=== PATIENT | female | born 1960 | race African-American/Black ===

== ENCOUNTER 2017-12-21 14:38 | Emergency (ER) | payer OTHER ==
[2017-12-21 16:28] LABS: Urine Blood NEGATIVE (NEG); Urine Glucose NEGATIVE (NEG); Urine Protein NEGATIVE (NEG); Urine Specific Gravity 1.025 (1.005-1.030)
[2017-12-21 16:36] LABS: Urine Bacteria <20 /HPF (<20); Urine RBC NONE SEEN /HPF (NONE SEEN)
[2017-12-21 16:37] LABS: Urine Culture Reflex Order NOT NEEDED; Urine Mucus MOD /HPF (NONE SEEN)
--- NOTE | 2017-12-21 17:04 | ER ---
Nurse's Notes [facility] Name: Marleny Fay Age: 57 yrs Sex: Female : 1960 Arrival Date: 12/21/2017 Time: 14:41 Bed 11 Private MD: Rama Grimm H Diagnosis: Influenza due to identified novel influenza A virus;Essential (primary) hypertension Presentation: 12/21 14:47 Presenting complaint: Patient states: cough, congestion, and sore throat that began aa5 yesterday. Transition of care: patient was not received from another setting of care. Onset of symptoms was November 2017. Risk Assessment: Do you want to hurt yourself or someone else? Patient reports no desire to harm self or others. Initial Sepsis Screen: Does the patient meet any 2 criteria? No. Patient's initial sepsis screen is negative. Does the patient have a suspected source of infection? No. Patient's initial sepsis screen is negative. Care prior to arrival: None. 14:47 Method Of Arrival: Ambulatory aa5 14:47 Acuity: NARENDRA 3 aa5 Historical: - Allergies: 14:48 No Known Allergies; aa5 - PMHx: 14:48 Hypertension; aa5 - PSHx: 14:48 None; aa5 - Immunization history:: Pneumococcal vaccine is not up to date, Flu vaccine is not up to date. - Social history:: Smoking status: Patient/guardian denies using tobacco. - Ebola Screening: : No symptoms or risks identified at this time. Screenin:00 Abuse screen: Denies threats or abuse. Denies injuries from another. Nutritional sg screening: No deficits noted. Tuberculosis screening: No symptoms or risk factors identified. Never had TB. Fall Risk None identified. Assessment: 16:00 Reassessment: pt reports body aches. General: Appears in no apparent distress. well sg groomed, well developed, well nourished, Behavior is calm, cooperative, appropriate for age. Neuro: No deficits noted. Cardiovascular: Patient's skin is warm and dry. Respiratory: Respiratory effort is even, unlabored, Respiratory pattern is regular, symmetrical. GI: No signs and/or symptoms were reported involving the gastrointestinal system. : No signs and/or symptoms were reported regarding the genitourinary system. EENT: No signs and/or symptoms were reported regarding the EENT system. Derm: Skin is pink, warm \T\ dry. Musculoskeletal: No signs and/or symptoms reported regarding the musculoskeletal system. Vital Signs: 14:49 BP 172 / 89; Pulse 103; Resp 16 S; Temp 99.0(O); Pulse Ox 98% on R/A; Weight 104.78 kg aa5 (R); Height 5 ft. 9 in. (175.26 cm) (R); Pain 8/10; 14:49 Body Mass Index 34.11 (104.78 kg, 175.26 cm) aa5 ED Course: 14:41 Patient arrived in ED. mr 14:41 Rama Grimm DO is Private Physician. mr 14:48 Triage completed. aa5 14:48 Arm band placed on. aa5 15:28 Jan Dixon, TALI is Primary Nurse. sg 15:37 Jeaneth Gupta FNP-C is PHCP. snw 15:37 Marcelo Aranda MD is Attending Physician. snw 15:40 Pulse ox on. NIBP on. sg 15:40 Initial lab(s) drawn, by me, sent to lab. Flu and/or RSV swab sent to lab. Strep swab sg sent to lab. 16:29 Chest Pa And Lat (2 Views) XRAY In Process Unspecified. EDMS 17:03 Rama Grimm DO is Referral Physician. snw Administered Medications: 17:24 Drug: Tamiflu 75 mg Route: PO; sg 17:24 Drug: [place] 5 mg-325 mg 1 tabs Route: PO; sg 17:24 Drug: Zofran 4 mg Route: PO; sg Outcome: 17:03 Discharge ordered by . snw 17:25 Patient left the ED. sg Signatures: Dispatcher [employer] EDMS Jan Dixon RN RN sg Jeaneth Gupta FNP-C FNP-Melody UptonAranza knowles Cecelia Sood RN RN aa5 Corrections: (The following items were deleted from the chart) 17:25 17:04 Tamiflu 75 mg PO sg sg
--- NOTE | 2017-12-21 17:04 | EDPHYS ---
Physician Documentation [facility] Name: Marleny Fay Age: 57 yrs Sex: Female : 1960 Arrival Date: 12/21/2017 Time: 14:41 Bed 11 Private MD: Rama Grimm H ED Physician Marcelo Aranda HPI: 12/21 17:19 This 57 yrs old Black Female presents to ER via Ambulatory with complaints of Flu snw Symptoms. 17:19 Onset: The symptoms/episode began/occurred suddenly, last night. Associated signs and snw symptoms: Pertinent positives: cough, myalgias, fatigue. Modifying factors: The patient symptoms are alleviated by nothing, the patient symptoms are aggravated by activity. It is unknown whether or not the patient has had similar symptoms in the past. The patient has not recently seen a physician. Grandchildren with influenza last week. Historical: - Allergies: 14:48 No Known Allergies; aa5 - PMHx: 14:48 Hypertension; aa5 - PSHx: 14:48 None; aa5 - Immunization history:: Pneumococcal vaccine is not up to date, Flu vaccine is not up to date. - Social history:: Smoking status: Patient/guardian denies using tobacco. - Ebola Screening: : No symptoms or risks identified at this time. ROS: 17:15 Eyes: Negative for injury, pain, redness, and discharge, ENT: Negative for injury, snw pain, and discharge, Neck: Negative for injury, pain, and swelling, Cardiovascular: Negative for chest pain, palpitations, and edema. 17:15 Abdomen/GI: Negative for abdominal pain, nausea, vomiting, diarrhea, and constipation, Back: Negative for injury, positive for pain Skin: Negative for injury, rash, and discoloration, Neuro: Negative for headache, weakness, numbness, tingling, and seizure. 17:15 Constitutional: Positive for body aches, chills, fatigue, fever, malaise. 17:15 Respiratory: Positive for cough. 17:15 MS/extremity: Positive for "i hurt everywhere". Exam: 17:13 Head/Face: Normocephalic, atraumatic. Eyes: Pupils equal round and reactive to light, snw extra-ocular motions intact. Lids and lashes normal. Conjunctiva and sclera are non-icteric and not injected. Cornea within normal limits. Periorbital areas with no swelling, redness, or edema. ENT: Nares patent. No nasal discharge, no septal abnormalities noted. Tympanic membranes are normal and external auditory canals are clear. Oropharynx with no redness, swelling, or masses, exudates, or evidence of obstruction, uvula midline. Mucous membranes moist. Neck: Trachea midline, no thyromegaly or masses palpated, and no cervical lymphadenopathy. Supple, full range of motion without nuchal rigidity, or vertebral point tenderness. No Meningismus. Chest/axilla: Normal chest wall appearance and motion. Nontender with no deformity. No lesions are appreciated. 17:13 Abdomen/GI: Soft, non-tender, with normal bowel sounds. No distension or tympany. No guarding or rebound. No evidence of tenderness throughout. Back: No spinal tenderness. No costovertebral tenderness. Full range of motion. Skin: Warm, dry with normal turgor. Normal color with no rashes, no lesions, and no evidence of cellulitis. MS/ Extremity: Pulses equal, no cyanosis. Neurovascular intact. Full, normal range of motion. Neuro: Awake and alert, GCS 15, oriented to person, place, time, and situation. Cranial nerves II-XII grossly intact. Motor strength 5/5 in all extremities. Sensory grossly intact. Cerebellar exam normal. Normal gait. 17:13 Constitutional: The patient appears alert, awake, uncomfortable. 17:13 Cardiovascular: Rate: tachycardic, Rhythm: regular. 17:13 Respiratory: the patient does not display signs of respiratory distress, Respirations: normal, Breath sounds: are clear throughout, no bronchial sounds, cough. Vital Signs: 14:49 BP 172 / 89; Pulse 103; Resp 16 S; Temp 99.0(O); Pulse Ox 98% on R/A; Weight 104.78 kg aa5 (R); Height 5 ft. 9 in. (175.26 cm) (R); Pain 8/10; 14:49 Body Mass Index 34.11 (104.78 kg, 175.26 cm) aa5 MDM: 15:44 Patient medically screened. [facility] 17:11 Data reviewed: vital signs, nurses notes. Data interpreted: Pulse oximetry: on room air snw is 98 %. Interpretation: normal. Counseling: I had a detailed discussion with the patient and/or guardian regarding: the historical points, exam findings, and any diagnostic results supporting the discharge/admit diagnosis, the presence of at least one elevated blood pressure reading (>120/80) during this emergency department visit, lab results, radiology results, the need for outpatient follow up, to return to the emergency department if symptoms worsen or persist or if there are any questions or concerns that arise at home. Special discussion: I have referred the patient to see his PCP for further evaluation of high blood pressure. Based on the history and exam findings, there is no indication for further emergent testing or inpatient evaluation. I discussed with the patient/guardian the need to see the primary care provider for further evaluation of the symptoms. 12/21 15:47 Order name: Flu; Complete Time: 17:02 iw 12/21 15:47 Order name: Strep; Complete Time: 17:02 iw 12/21 15:48 Order name: Urine Microscopic Only; Complete Time: 16:43 snw 12/21 16:07 Order name: Chest Pa And Lat (2 Views) XRAY; Complete Time: 17:11 snw 12/21 16:09 Order name: Urine Dipstick--Ancillary (enter results); Complete Time: 16:30 bd 12/21 16:58 Order name: Throat Culture EDMS Administered Medications: 17:24 Drug: Tamiflu 75 mg Route: PO; sg 17:24 Drug: [place] 5 mg-325 mg 1 tabs Route: PO; sg 17:24 Drug: Zofran 4 mg Route: PO; sg Disposition: 17:56 Co-signature as Attending Physician, Marcelo Aranda MD I agree with the assessment and sidney plan of care. Disposition: 12/21/17 17:03 Discharged to Home. Impression: Influenza due to identified novel influenza A virus, Essential (primary) hypertension. - Condition is Stable. - Discharge Instructions: Fever, Adult, Hypertension, Influenza, Adult, Cough, Adult. - Prescriptions for Tamiflu 75 mg Oral Capsule - take 1 capsule by ORAL route every 12 hours for 5 days; 10 capsule. Tylenol- Codeine #3 300-30 mg Oral Tablet - take 1 tablet by ORAL route every 6 hours As needed; 6 tablet. Zofran 4 mg Oral Tablet - take 1 tablet by ORAL route every 12 hours As needed; 6 tablet. - Medication Reconciliation Form, Thank You Letter, Antibiotic Education, Prescription Opioid Use form. - Follow up: Alfa, DO Rama; When: 1 week; Reason: Recheck today's complaints, Continuance of care, Re-evaluation by your physician. Follow up: Emergency Department; When: As needed; Reason: Worsening of condition. Signatures: Dispatcher [employer] EDJan Molina, RN RN Marcleo Pichardo MD MD cha Therrien, Shelly, PROOF OPERATOR-C PROOF OPERATOR-Csnw Cecelia Sood, TALI RN aa5 Corrections: (The following items were deleted from the chart) 16:08 15:48 Urine Dipstick-Ancillary ordered. snw bd 17:25 17:03 12/21/2017 17:03 Discharged to Home. Impression: Influenza due to identified sg novel influenza A virus; Essential (primary) hypertension. Condition is Stable. Forms are Medication Reconciliation Form, Thank You Letter, Antibiotic Education, Prescription Opioid Use. Follow up: Rama Grimm; When: 1 week; Reason: Recheck today's complaints, Continuance of care, Re-evaluation by your physician. Follow up: Emergency Department; When: As needed; Reason: Worsening of condition. snw
--- NOTE | 2017-12-21 17:09 | RAD REPORT ---
EXAM DESCRIPTION: RAD - Chest Pa And Lat (2 Views) - 12/21/2017 4:30 pm CLINICAL HISTORY: Cough and congestion COMPARISON: January 2012 TECHNIQUE: PA and lateral views of the chest were obtained. FINDINGS: The lungs are clear of a focal mass, consolidation or acute failure finding. Interstitial markings are prominent but not clearly different. Heart size is normal and central vasculature is w ithin normal limits. No pleural effusion or pneumothorax seen. No acute bony finding noted. No aor tic abnormality. IMPRESSION: No acute cardiopulmonary process. No significant change from comparison.
[2017-12-21] MEDS ORDERED: HYDROCODONE/APAP 5/325 MG TAB ONE (17:25)
[2017-12-21] MEDS ORDERED: ONDANSETRON 4 MG (ODT) TAB ONE (17:25)
[2017-12-21] MEDS ORDERED: OSELTAMIVIR 75 MG CAP ONE (17:25)
[2017-12-21 18:35] VITALS: BP 172/89; TEMP 99; O2SAT 98
== END 2017-12-21 17:25 | disposition home or self-care (01) ==
LOC: ER 14:38
DX: J11.1 Influenza due to unidentified influenza virus with other respiratory manifestations (principal); I10 Essential (primary) hypertension
CPT/HCPCS: 71046; 81003; 81015; 87070; 87081; 87804; 99284

== ENCOUNTER 2018-05-19 15:31 | Emergency (ER) | payer OTHER ==
[2018-05-19 16:50] LABS: Urine Amorphous Sediment 1+ /HPF (NONE SEEN); Urine Bacteria 20-50 /HPF (<20); Urine Culture Reflex Order REFLEXED; Urine Trichomonas PRESENT (NONE SEEN)
[2018-05-19 17:11] LABS: Urine Blood NEGATIVE (NEG); Urine Glucose NEGATIVE (NEG); Urine Protein NEGATIVE (NEG); Urine Specific Gravity 1.015 (1.005-1.030)
--- NOTE | 2018-05-19 17:55 | ER ---
Nurse's Notes [facility] Name: Marleny Fay Age: 57 yrs Sex: Female : 1960 Arrival Date: 05/19/2018 Time: 15:34 Bed 27 Private MD: Rama Grimm H Diagnosis: Hematuria;Trichomoniasis Presentation: 05/19 15:46 Presenting complaint: Patient states: hematuria started today. Transition of care: sv patient was not received from another setting of care. Onset of symptoms was May 19, 2018. Care prior to arrival: None. 15:46 Method Of Arrival: Ambulatory sv 15:46 Acuity: NARENDRA 3 sv 16:02 Risk Assessment: Do you want to hurt yourself or someone else? Patient reports no mg2 desire to harm self or others. Initial Sepsis Screen: Does the patient meet any 2 criteria? No. Patient's initial sepsis screen is negative. Does the patient have a suspected source of infection? No. Patient's initial sepsis screen is negative. Historical: - Allergies: 15:47 No Known Allergies; sv - Home Meds: 16:02 Diltiazem Oral [Active]; lisinopril Oral [Active]; mg2 - PMHx: 15:47 Hypertension; sv - PSHx: 15:47 None; sv - Immunization history:: Flu vaccine status is unknown. - Social history:: Smoking status: unknown. - Ebola Screening: : No symptoms or risks identified at this time. - Family history:: not pertinent. Screenin:56 Abuse screen: Denies threats or abuse. Denies injuries from another. Nutritional mg2 screening: No deficits noted. Tuberculosis screening: No symptoms or risk factors identified. Fall Risk None identified. Assessment: 15:59 General: Appears in no apparent distress. comfortable, Behavior is calm, cooperative. mg2 Pain: Denies pain. Neuro: Level of Consciousness is awake, alert, obeys commands, Oriented to person, place, time, situation. Cardiovascular: Capillary refill < 3 seconds Patient's skin is warm and dry. Respiratory: Airway is patent Respiratory effort is even, unlabored, Respiratory pattern is regular, symmetrical. GI: No signs and/or symptoms were reported involving the gastrointestinal system. : Urine is jamarcus blood, Reports vaginal bleeding that is with clots, moderate flow, since 3 hours ago. EENT: No signs and/or symptoms were reported regarding the EENT system. Derm: Skin is intact, is healthy with good turgor, Skin is pink, warm \T\ dry. normal. Musculoskeletal: Circulation, motion, and sensation intact. Capillary refill < 3 seconds. 18:11 Reassessment: patient just received im antibiotic. for discharge after the shot time. mg2 Vital Signs: 15:47 BP 180 / 92; Pulse 82; Resp 16; Temp 97.5; Pulse Ox 95% ; Weight 102.06 kg; Height 5 sv ft. 9 in. (175.26 cm); Pain 0/10; 16:49 BP 173 / 98; Pulse 82; Resp 18; Pulse Ox 100% on R/A; Pain 0/10; mg2 18:10 BP 165 / 78; Pulse 80; Resp 18; Pulse Ox 100% on R/A; Pain 0/10; mg2 15:47 Body Mass Index 33.23 (102.06 kg, 175.26 cm) sv ED Course: 15:34 Patient arrived in ED. mr 15:34 Rama Grimm DO is Private Physician. mr 15:47 Triage completed. sv 15:48 Arm band placed on. sv 15:54 Dann Barraza, TALI is Primary Nurse. mg2 15:59 Marcelo Aranda MD is Attending Physician. sidney 15:59 Patient has correct armband on for positive identification. Door closed. mg2 16:03 No provider procedures requiring assistance completed. mg2 17:53 Rama Grimm DO is Referral Physician. sidney 17:53 Fartun Almeida MD is Referral Physician. sidney 18:23 Patient did not have IV access during this emergency room visit. mg2 Administered Medications: 18:11 Drug: Rocephin (cefTRIAXone) 1 grams Route: IM; Site: left gluteus; mg2 18:22 Follow up: Response: No adverse reaction; Medication administered at discharge. mg2 18:11 Drug: Zithromax 1 grams Route: PO; mg2 18:22 Follow up: Response: No adverse reaction; Medication administered at discharge. mg2 18:11 Drug: Doxycycline 200 mg Route: PO; mg2 18:22 Follow up: Response: No adverse reaction; Medication administered at discharge. mg2 Outcome: 17:54 Discharge ordered by . sidney 18:23 Discharged to home ambulatory, with family. mg2 18:23 Condition: stable 18:23 Discharge instructions given to patient, family, Instructed on discharge instructions, follow up and referral plans. medication usage, Demonstrated understanding of instructions, follow-up care, medications, Prescriptions given X 3. 18:24 Patient left the ED. mg2 Addendum: 05/22/2018 08:05 Addendum: Culture Results: Positive urine culture. No further action required. Bacteria s s sensitive to prescribed antibiotic. Signatures: Radha Cortes RN RN Marcelo Cleaning MD MD cha Rivera, Mary mr Emilia Gibbons RN RN Dann Barraza RN RN mg2 Corrections: (The following items were deleted from the chart) 05/19 15:48 15:47 Pulse 82bpm; Resp 16bpm; Temp 97.5F; 102.06 kg; Height 5 ft. 9 in.; BMI: 33.2; sv Pain 0/10; sv
--- NOTE | 2018-05-19 17:55 | EDPHYS ---
Physician Documentation [facility] Name: Marleny Fay Age: 57 yrs Sex: Female : 1960 Arrival Date: 05/19/2018 Time: 15:34 Bed 27 Private MD: Rama Grimm H ED Physician Marcelo Aranda HPI: 05/19 16:45 This 57 yrs old Black Female presents to ER via Ambulatory with complaints of Vaginal sidney Bleeding. 16:45 The patient presents with vaginal bleeding that is. Onset: The symptoms/episode sidney began/occurred 2 day(s) ago. Modifying factors: The symptoms are alleviated by nothing, the symptoms are aggravated by nothing. Associated signs and symptoms: The patient has no apparent associated signs or symptoms. Severity of symptoms: At their worst the symptoms were mild, in the emergency department the symptoms are unchanged. The patient is not sexually active. The patient has experienced similar episodes in the past, a few times. Historical: - Allergies: 15:47 No Known Allergies; sv - Home Meds: 16:02 Diltiazem Oral [Active]; lisinopril Oral [Active]; mg2 - PMHx: 15:47 Hypertension; sv - PSHx: 15:47 None; sv - Immunization history:: Flu vaccine status is unknown. - Social history:: Smoking status: unknown. - Ebola Screening: : No symptoms or risks identified at this time. - Family history:: not pertinent. ROS: 16:45 Constitutional: Negative for fever, chills, and weight loss, Eyes: Negative for injury, sidney pain, redness, and discharge, ENT: Negative for injury, pain, and discharge, Neck: Negative for injury, pain, and swelling, Cardiovascular: Negative for chest pain, palpitations, and edema, Respiratory: Negative for shortness of breath, cough, wheezing, and pleuritic chest pain, Abdomen/GI: Negative for abdominal pain, nausea, vomiting, diarrhea, and constipation, Back: Negative for injury and pain, MS/Extremity: Negative for injury and deformity, Skin: Negative for injury, rash, and discoloration, Neuro: Negative for headache, weakness, numbness, tingling, and seizure, Psych: Negative for depression, anxiety, suicide ideation, homicidal ideation, and hallucinations, Allergy/Immunology: Negative for hives, rash, and allergies, Endocrine: Negative for neck swelling, polydipsia, polyuria, polyphagia, and marked weight changes, Hematologic/Lymphatic: Negative for swollen nodes, abnormal bleeding, and unusual bruising. 16:45 : Positive for vaginal bleeding, vaginal itching. Exam: 16:45 Constitutional: This is a well developed, well nourished patient who is awake, alert, sidney and in no acute distress. Head/Face: Normocephalic, atraumatic. Eyes: Pupils equal round and reactive to light, extra-ocular motions intact. Lids and lashes normal. Conjunctiva and sclera are non-icteric and not injected. Cornea within normal limits. Periorbital areas with no swelling, redness, or edema. ENT: Nares patent. No nasal discharge, no septal abnormalities noted. Tympanic membranes are normal and external auditory canals are clear. Oropharynx with no redness, swelling, or masses, exudates, or evidence of obstruction, uvula midline. Mucous membranes moist. Neck: Trachea midline, no thyromegaly or masses palpated, and no cervical lymphadenopathy. Supple, full range of motion without nuchal rigidity, or vertebral point tenderness. No Meningismus. Chest/axilla: Normal chest wall appearance and motion. Nontender with no deformity. No lesions are appreciated. Cardiovascular: Regular rate and rhythm with a normal S1 and S2. No gallops, murmurs, or rubs. Normal PMI, no JVD. No pulse deficits. Respiratory: Lungs have equal breath sounds bilaterally, clear to auscultation and percussion. No rales, rhonchi or wheezes noted. No increased work of breathing, no retractions or nasal flaring. Abdomen/GI: Soft, non-tender, with normal bowel sounds. No distension or tympany. No guarding or rebound. No evidence of tenderness throughout. Back: No spinal tenderness. No costovertebral tenderness. Full range of motion. Skin: Warm, dry with normal turgor. Normal color with no rashes, no lesions, and no evidence of cellulitis. MS/ Extremity: Pulses equal, no cyanosis. Neurovascular intact. Full, normal range of motion. Neuro: Awake and alert, GCS 15, oriented to person, place, time, and situation. Cranial nerves II-XII grossly intact. Motor strength 5/5 in all extremities. Sensory grossly intact. Cerebellar exam normal. Normal gait. Psych: Awake, alert, with orientation to person, place and time. Behavior, mood, and affect are within normal limits. 17:52 : Pelvic Exam: External exam: erythema is noted, excoriation noted, Speculum exam: no sidney bleeding is noted, discharge, yellow, the nurse was present for the exam, Bladder: is normal, non-distended. Vital Signs: 15:47 BP 180 / 92; Pulse 82; Resp 16; Temp 97.5; Pulse Ox 95% ; Weight 102.06 kg; Height 5 sv ft. 9 in. (175.26 cm); Pain 0/10; 16:49 BP 173 / 98; Pulse 82; Resp 18; Pulse Ox 100% on R/A; Pain 0/10; mg2 18:10 BP 165 / 78; Pulse 80; Resp 18; Pulse Ox 100% on R/A; Pain 0/10; mg2 15:47 Body Mass Index 33.23 (102.06 kg, 175.26 cm) sv MDM: 15:59 Patient medically screened. [facility] 16:47 Data reviewed: vital signs, nurses notes. [facility] 05/19 15:55 Order name: Urine Microscopic Only; Complete Time: 17:08 mg2 05/19 16:52 Order name: Urine Culture [facility] 05/19 16:55 Order name: Urine Dipstick--Ancillary (enter results); Complete Time: 17:51 05/19 16:57 Order name: Urine --Ancillary (enter results); Complete Time: 17:51 bd 05/19 16:48 Order name: Urine Dipstick-Ancillary (obtain specimen); Complete Time: 16:49 [facility] 05/19 16:48 Order name: Pelvic Exam Setup; Complete Time: 16:49 sidney Administered Medications: 18:11 Drug: Rocephin (cefTRIAXone) 1 grams Route: IM; Site: left gluteus; mg2 18:22 Follow up: Response: No adverse reaction; Medication administered at discharge. mg2 18:11 Drug: Zithromax 1 grams Route: PO; mg2 18:22 Follow up: Response: No adverse reaction; Medication administered at discharge. mg2 18:11 Drug: Doxycycline 200 mg Route: PO; mg2 18:22 Follow up: Response: No adverse reaction; Medication administered at discharge. mg2 Disposition: 05/19/18 17:54 Discharged to Home. Impression: Hematuria, Trichomoniasis. - Condition is Stable. - Discharge Instructions: Hematuria, Adult, Trichomoniasis. - Prescriptions for Cipro 250 mg Oral Tablet - take 1 tablet by ORAL route every 12 hours; 14 tablet. Doxycycline Hyclate 100 mg Oral Tablet - take 1 tablet by ORAL route every 12 hours; 20 tablet. Diflucan 150 mg Oral Tablet - take 1 tablet by ORAL route one time for 1 day; 1 tablet. - Medication Reconciliation Form, Thank You Letter, Antibiotic Education, Prescription Opioid Use form. - Follow up: Rama Grimm DO; When: 2 - 3 days; Reason: Recheck today's complaints, Continuance of care, Re-evaluation by your physician. Follow up: Fartun Almeida MD; When: 2 - 3 days; Reason: Recheck today's complaints, Re-evaluation by your physician. - Problem is new. - Symptoms have improved. Signatures: Dispatcher [employer] EDRadha Littlejohn RN RN sv Anderson, Corey, MD MD cha Gardose, Michele, RN RN mg2 Corrections: (The following items were deleted from the chart) 18:24 17:54 05/19/2018 17:54 Discharged to Home. Impression: Hematuria; Trichomoniasis. mg2 Condition is Stable. Forms are Medication Reconciliation Form, Thank You Letter, Antibiotic Education, Prescription Opioid Use. Follow up: Rama Grimm; When: 2 - 3 days; Reason: Recheck today's complaints, Continuance of care, Re-evaluation by your physician. Follow up: Fartun Almeida; When: 2 - 3 days; Reason: Recheck today's complaints, Re-evaluation by your physician. Problem is new. Symptoms have improved. sidney
[2018-05-19] MEDS ORDERED: AZITHROMYCIN 250 MG TAB ONE (18:11)
[2018-05-19] MEDS ORDERED: LIDOCAINE 1% MPF 2 ML AMPULE ONE (18:12)
[2018-05-19] MEDS ORDERED: CEFTRIAXONE 1000 MG/VIAL ONE (18:12)
[2018-05-19] MEDS ORDERED: DOXYCYCLINE 100 MG CAP PO ONE (18:12)
[2018-05-19 19:11] VITALS: TEMP 97.5
[2018-05-19 19:14] VITALS: O2SAT 100
[2018-05-19 19:16] VITALS: BP 165/78
== END 2018-05-19 18:24 | disposition home or self-care (01) ==
LOC: ER 15:31
DX: A59.9 Trichomoniasis, unspecified (principal); I10 Essential (primary) hypertension
CPT/HCPCS: 87088; 87086; 81025; 87077; 87186; 96372; 99283; J2001; 81003; 81015

== ENCOUNTER 2018-07-26 13:22 | Inpatient (IN) | payer OTHER ==
--- NOTE | 2018-07-26 14:07 | EDPHYS ---
Physician Documentation [facility] Name: Marleny Fay Age: 57 yrs Sex: Female : 1960 Arrival Date: 07/26/2018 Time: 13:23 Bed 20 Private MD: Rama Grimm H ED Physician Marcelo Aranda HPI: 07/26 14:02 This 57 yrs old Black Female presents to ER via Ambulatory with complaints of Chest sidney Pain. 14:02 The patient or guardian reports chest pain that is located primarily in the substernal sidney area. Onset: last night, 1 day(s) ago. The pain radiates to both arms, Associated signs and symptoms: The patient has no apparent associated signs or symptoms. The chest pain is described as a pressure. Duration: The patient or guardian reports a single episode, that is still ongoing. Modifying factors: The symptoms are alleviated by nothing. the symptoms are aggravated by nothing. Severity of pain: At its worst the pain was. Historical: - Allergies: 13:30 No Known Drug Allergies; sv - Home Meds: 15:55 Diltiazem Oral [Active]; lisinopril 20 mg oral tab 1 tab BID [Active]; ae4 - PMHx: 13:30 Hypertension; sv - PSHx: 13:30 None; sv - Immunization history:: Adult Immunizations up to date. - Family history:: not pertinent. - Social history:: Smoking status: Patient uses tobacco products, 1 to 2 cigarettes per week.. - Ebola Screening: : Patient negative for fever greater than or equal to 101.5 degrees Fahrenheit, and additional compatible Ebola Virus Disease symptoms Patient denies exposure to infectious person Patient denies travel to an Ebola-affected area in the 21 days before illness onset. ROS: 14:02 Constitutional: Negative for fever, chills, and weight loss, Eyes: Negative for injury, sidney pain, redness, and discharge, ENT: Negative for injury, pain, and discharge, Neck: Negative for injury, pain, and swelling, Respiratory: Negative for shortness of breath, cough, wheezing, and pleuritic chest pain, Abdomen/GI: Negative for abdominal pain, nausea, vomiting, diarrhea, and constipation, Back: Negative for injury and pain, : Negative for injury, bleeding, discharge, and swelling, MS/Extremity: Negative for injury and deformity, Skin: Negative for injury, rash, and discoloration, Neuro: Negative for headache, weakness, numbness, tingling, and seizure, Psych: Negative for depression, anxiety, suicide ideation, homicidal ideation, and hallucinations, Allergy/Immunology: Negative for hives, rash, and allergies, Endocrine: Negative for neck swelling, polydipsia, polyuria, polyphagia, and marked weight changes, Hematologic/Lymphatic: Negative for swollen nodes, abnormal bleeding, and unusual bruising. 14:02 Cardiovascular: Positive for chest pain. Exam: 14:02 Constitutional: This is a well developed, well nourished patient who is awake, alert, sidney and in no acute distress. Head/Face: Normocephalic, atraumatic. Eyes: Pupils equal round and reactive to light, extra-ocular motions intact. Lids and lashes normal. Conjunctiva and sclera are non-icteric and not injected. Cornea within normal limits. Periorbital areas with no swelling, redness, or edema. ENT: Nares patent. No nasal discharge, no septal abnormalities noted. Tympanic membranes are normal and external auditory canals are clear. Oropharynx with no redness, swelling, or masses, exudates, or evidence of obstruction, uvula midline. Mucous membranes moist. Neck: Trachea midline, no thyromegaly or masses palpated, and no cervical lymphadenopathy. Supple, full range of motion without nuchal rigidity, or vertebral point tenderness. No Meningismus. Chest/axilla: Normal chest wall appearance and motion. Nontender with no deformity. No lesions are appreciated. Cardiovascular: Regular rate and rhythm with a normal S1 and S2. No gallops, murmurs, or rubs. Normal PMI, no JVD. No pulse deficits. Respiratory: Lungs have equal breath sounds bilaterally, clear to auscultation and percussion. No rales, rhonchi or wheezes noted. No increased work of breathing, no retractions or nasal flaring. Abdomen/GI: Soft, non-tender, with normal bowel sounds. No distension or tympany. No guarding or rebound. No evidence of tenderness throughout. Back: No spinal tenderness. No costovertebral tenderness. Full range of motion. Skin: Warm, dry with normal turgor. Normal color with no rashes, no lesions, and no evidence of cellulitis. MS/ Extremity: Pulses equal, no cyanosis. Neurovascular intact. Full, normal range of motion. Neuro: Awake and alert, GCS 15, oriented to person, place, time, and situation. Cranial nerves II-XII grossly intact. Motor strength 5/5 in all extremities. Sensory grossly intact. Cerebellar exam normal. Normal gait. Psych: Awake, alert, with orientation to person, place and time. Behavior, mood, and affect are within normal limits. Vital Signs: 13:30 BP 160 / 98; Pulse 69; Resp 24; Temp 97.2; Pulse Ox 99% ; Weight 98.43 kg; Height 5 ft. sv 9 in. (175.26 cm); Pain 10/10; 14:00 BP 174 / 72; Pulse 67; Resp 16; Pulse Ox 99% on R/A; ae4 14:48 BP 190 / 98; Pulse 67; Resp 20; Temp 98.0(O); Pulse Ox 100% on R/A; mh5 15:00 BP 196 / 99; Pulse 57; Resp 16; Pulse Ox 100% on R/A; ae4 15:50 BP 198 / 97; Pulse 53; Resp 16; Pulse Ox 100% on R/A; Pain 0/10; ae4 16:07 BP 209 / 102; Pulse 53; Resp 17; Pulse Ox 99% on R/A; ae4 16:23 BP 164 / 68; Pulse 55; Resp 16; Pulse Ox 100% on R/A; Pain 3/10; ae4 13:30 Body Mass Index 32.04 (98.43 kg, 175.26 cm) sv MDM: 13:35 Patient medically screened. [facility] 14:02 Data reviewed: vital signs, nurses notes, lab test result(s), EKG, radiologic studies, sidney plain films. 07/26 13:50 Order name: Basic Metabolic Panel; Complete Time: 15: 07/26 13:50 Order name: CBC with Diff; Complete Time: : 07/26 13:50 Order name: LFT's; Complete Time: 15: 07/26 13:50 Order name: Magnesium; Complete Time: 15: 07/26 13:50 Order name: NT PRO-BNP; Complete Time: 15: 07/26 13:50 Order name: PT-INR; Complete Time: 15: 07/26 13:50 Order name: Troponin (emerg Dept Use Only); Complete Time: 15:05 ph 07/26 13:50 Order name: XRAY Chest (1 view); Complete Time: 15:05 ph 07/26 14:02 Order name: Lipase; Complete Time: 15:05 sidney 07/26 13:50 Order name: EKG; Complete Time: 13:53 ph 07/26 13:50 Order name: Cardiac monitoring; Complete Time: 14:13 ph 07/26 13:50 Order name: EKG - Nurse/Tech; Complete Time: 13:53 ph 07/26 13:50 Order name: IV Saline Lock; Complete Time: 14:13 ph 07/26 13:50 Order name: Labs collected and sent; Complete Time: 14:13 ph 07/26 13:50 Order name: O2 Per Protocol; Complete Time: 14:13 ph 07/26 13:50 Order name: O2 Sat Monitoring; Complete Time: 14:13 ph Administered Medications: 14:33 Drug: Aspirin Chewable Tablet 324 mg Route: PO; ae4 16:01 Follow up: Response: No adverse reaction ae4 14:36 Drug: Lopressor 25 mg Route: PO; ae4 16:06 Follow up: Response: Other; Blood pressure has increased, provider has been notified, ae4 new orders received. 14:37 Drug: Zofran 4 mg Route: IVP; Site: left antecubital; ae4 15:13 Follow up: Response: No adverse reaction ae4 14:39 Drug: Pepcid 20 mg Route: IVP; Site: left antecubital; ae4 15:13 Follow up: Response: No adverse reaction ae4 14:40 Drug: morphine 2 mg Route: IVP; Site: left antecubital; ae4 15:12 Follow up: Response: Pain is decreased ae4 14:43 Drug: Lovenox 1 mg/kg Route: Sub-Q; Site: left lower abdomen; ae4 16:19 Follow up: Response: No adverse reaction ae4 15:21 Drug: Lisinopril 40 mg Route: PO; ae4 16:19 Follow up: Response: Blood pressure is elevated ae4 16:10 Drug: hydrALAZINE 10 mg Route: IV; Rate: per protocol; Site: left antecubital; ae4 16:24 Follow up: Response: Blood pressure is lowered; IV Status: Completed infusion ae4 16:10 Drug: hydrALAZINE 10 mg Route: PO; ae4 16:23 Not Given (Patient's pain is controlled.): morphine 2 mg IVP once ae4 Disposition: 07/26/18 14:05 Hospitalization ordered by Priyank Portillo for Observation. Preliminary diagnosis are Chest pain, unspecified, Essential (primary) hypertension, Tobacco abuse counseling, Tobacco use. - Bed requested for Telemetry/MedSurg (observation). - Status is Observation. ae4 - Condition is Stable. - Problem is new. - Symptoms have improved. UTI on Admission? No Signatures: Dispatcher [employer] EDMS Aliya Moreno Stephanie, RN Michelle Moreno RN RN dw Anderson, Corey, MD MD cha Hall, Patricia, RN RN ph Elliott, Andrea, RN RN ae4 Corrections: (The following items were deleted from the chart) 15:25 14:05 Hospitalization Ordered by Priyank Portillo DO for Observation. Preliminary bd diagnosis is Chest pain, unspecified; Essential (primary) hypertension; Tobacco abuse counseling; Tobacco use. Bed requested for Telemetry/MedSurg (observation). Status is Observation. Condition is Stable. Problem is new. Symptoms have improved. UTI on Admission? No. sidney 15:32 15:25 07/26/2018 14:05 Hospitalization Ordered by Priyank Portillo DO for Observation. dw Preliminary diagnosis is Chest pain, unspecified; Essential (primary) hypertension; Tobacco abuse counseling; Tobacco use. Bed requested for Telemetry/MedSurg (observation). Status is Observation. Condition is Stable. Problem is new. Symptoms have improved. UTI on Admission? No. bd 17:00 15:32 07/26/2018 14:05 Hospitalization Ordered by Priyank Portillo DO for Observation. ae4 Preliminary diagnosis is Chest pain, unspecified; Essential (primary) hypertension; Tobacco abuse counseling; Tobacco use. Bed requested for Telemetry/MedSurg (observation). Status is Observation. Condition is Stable. Problem is new. Symptoms have improved. UTI on Admission? No. dw
--- NOTE | 2018-07-26 14:07 | ER ---
Nurse's Notes [facility] Name: Marleny Fay Age: 57 yrs Sex: Female : 1960 Arrival Date: 07/26/2018 Time: 13:23 Bed 20 Private MD: Rama Grimm H Diagnosis: Chest pain, unspecified;Essential (primary) hypertension;Tobacco abuse counseling;Tobacco use Presentation: 07/26 13:28 Presenting complaint: Patient states: chest pain that radiates to the upper back sv started 0100 today. Transition of care: patient was not received from another setting of care. Onset of symptoms was July 26, 2018. Care prior to arrival: None. 13:28 Method Of Arrival: Ambulatory sv 13:28 Acuity: NARENDRA 2 sv 15:50 Risk Assessment: Do you want to hurt yourself or someone else? Patient reports no ae4 desire to harm self or others. Initial Sepsis Screen: Does the patient meet any 2 criteria? No. Patient's initial sepsis screen is negative. Does the patient have a suspected source of infection? No. Patient's initial sepsis screen is negative. Triage Assessment: 13:28 General: Appears in no apparent distress. uncomfortable, Behavior is cooperative, sv appropriate for age, anxious. Pain: Complains of pain in anterior aspect of right upper chest and anterior aspect of left upper chest Pain radiates to left scapular area and right scapular area Pain currently is 10 out of 10 on a pain scale. Neuro: Level of Consciousness is awake, alert, obeys commands, Oriented to person, place, time, situation, Gait is steady. Respiratory: Reports shortness of breath on exertion cough that is non-productive, Respiratory effort is even, unlabored, Respiratory pattern is regular, symmetrical. Derm: Skin is pink, warm \T\ dry. Historical: - Allergies: 13:30 No Known Drug Allergies; sv - Home Meds: 15:55 Diltiazem Oral [Active]; lisinopril 20 mg oral tab 1 tab BID [Active]; ae4 - PMHx: 13:30 Hypertension; sv - PSHx: 13:30 None; sv - Immunization history:: Adult Immunizations up to date. - Family history:: not pertinent. - Social history:: Smoking status: Patient uses tobacco products, 1 to 2 cigarettes per week.. - Ebola Screening: : Patient negative for fever greater than or equal to 101.5 degrees Fahrenheit, and additional compatible Ebola Virus Disease symptoms Patient denies exposure to infectious person Patient denies travel to an Ebola-affected area in the 21 days before illness onset. Screenin:48 Abuse screen: Denies threats or abuse. Denies injuries from another. Nutritional ae4 screening: No deficits noted. Tuberculosis screening: No symptoms or risk factors identified. Fall Risk None identified. Assessment: 13:40 General: Appears in no apparent distress. uncomfortable, obese, Behavior is ae4 cooperative, appropriate for age, anxious. Pain: Complains of pain in xyphoid area Pain radiates to thoracic area. Pain: Pain began suddenly, 1 day ago. Neuro: Level of Consciousness is awake, alert, obeys commands, Oriented to person, place, time, situation, Appropriate for age. Cardiovascular: Heart tones S1 S2 present Patient's skin is warm and dry. Rhythm is regular. Respiratory: Airway is patent Respiratory effort is even, unlabored, Respiratory pattern is regular, Breath sounds are clear bilaterally. GI: Abdomen is round. : No signs and/or symptoms were reported regarding the genitourinary system. EENT: No signs and/or symptoms were reported regarding the EENT system. Derm: Skin temperature is warm. Musculoskeletal: No signs and/or symptoms reported regarding the musculoskeletal system. 14:00 Reassessment: Patient appears in no apparent distress at this time. Patient and/or ae4 family updated on plan of care and expected duration. Pain level reassessed. Patient denies pain at this time. Patient states symptoms have improved. Daughter at bedside. 14:35 Reassessment: Patient and/or family updated on plan of care and expected duration. Pain ae4 level reassessed. Warm blanket provided. Patient states feeling better. 15:59 Reassessment: Patient is resting with eyes closed, respirations even an unlabored. ae4 Daughter remains at bedside. Patient can be awakened easily, states she feels better. 16:34 Reassessment: Report called to TALI Maier via telephone. ae4 Vital Signs: 13:30 BP 160 / 98; Pulse 69; Resp 24; Temp 97.2; Pulse Ox 99% ; Weight 98.43 kg; Height 5 ft. sv 9 in. (175.26 cm); Pain 10/10; 14:00 BP 174 / 72; Pulse 67; Resp 16; Pulse Ox 99% on R/A; ae4 14:48 BP 190 / 98; Pulse 67; Resp 20; Temp 98.0(O); Pulse Ox 100% on R/A; mh5 15:00 BP 196 / 99; Pulse 57; Resp 16; Pulse Ox 100% on R/A; ae4 15:50 BP 198 / 97; Pulse 53; Resp 16; Pulse Ox 100% on R/A; Pain 0/10; ae4 16:07 BP 209 / 102; Pulse 53; Resp 17; Pulse Ox 99% on R/A; ae4 16:23 BP 164 / 68; Pulse 55; Resp 16; Pulse Ox 100% on R/A; Pain 3/10; ae4 13:30 Body Mass Index 32.04 (98.43 kg, 175.26 cm) sv ED Course: 13:23 Patient arrived in ED. ag5 13:23 Rama Grimm DO is Private Physician. ag5 13:30 Triage completed. sv 13:30 Arm band placed on. sv 13:35 Marcelo Aranda MD is Attending Physician. sidney 13:52 EKG done, by ED staff, reviewed by Marcelo Aranda MD. mh5 13:53 Patient has correct armband on for positive identification. Placed in gown. Bed in low mh5 position. Call light in reach. Side rails up X 1. Adult w/ patient. Warm blanket given. soaks. monitor worker on. Pulse ox on. NIBP on. 14:05 Priyank Portillo DO is Hospitalizing Provider. sidney 14:13 Jimbo Wylie, TALI is Primary Nurse. ae4 14:14 Inserted saline lock: 22 gauge in left antecubital area, using aseptic technique. Blood ae4 collected. 14:15 X-ray completed. Portable x-ray completed in exam room. Patient tolerated procedure tm4 well. 14:16 XRAY Chest (1 view) In Process Unspecified. EDMS 15:21 Warm blanket given. Pillow given. ae4 15:51 Patient maintains SpO2 saturation greater than 95% on room air. ae4 Administered Medications: 14:33 Drug: Aspirin Chewable Tablet 324 mg Route: PO; ae4 16:01 Follow up: Response: No adverse reaction ae4 14:36 Drug: Lopressor 25 mg Route: PO; ae4 16:06 Follow up: Response: Other; Blood pressure has increased, provider has been notified, ae4 new orders received. 14:37 Drug: Zofran 4 mg Route: IVP; Site: left antecubital; ae4 15:13 Follow up: Response: No adverse reaction ae4 14:39 Drug: Pepcid 20 mg Route: IVP; Site: left antecubital; ae4 15:13 Follow up: Response: No adverse reaction ae4 14:40 Drug: morphine 2 mg Route: IVP; Site: left antecubital; ae4 15:12 Follow up: Response: Pain is decreased ae4 14:43 Drug: Lovenox 1 mg/kg Route: Sub-Q; Site: left lower abdomen; ae4 16:19 Follow up: Response: No adverse reaction ae4 15:21 Drug: Lisinopril 40 mg Route: PO; ae4 16:19 Follow up: Response: Blood pressure is elevated ae4 16:10 Drug: hydrALAZINE 10 mg Route: IV; Rate: per protocol; Site: left antecubital; ae4 16:24 Follow up: Response: Blood pressure is lowered; IV Status: Completed infusion ae4 16:10 Drug: hydrALAZINE 10 mg Route: PO; ae4 16:23 Not Given (Patient's pain is controlled.): morphine 2 mg IVP once ae4 Intake: Outcome: 14:05 Decision to Hospitalize by Provider. [facility] 17:00 Patient left the ED. ae4 Signatures: Dispatcher [employer] Radha Soria, Marcelo Lopez RN, MD MD cha Marroquin, Tracy 4 Karen Castillo 5 April Gonzalez [facility] Jimbo Wylie RN RN ae4
[2018-07-26 14:22] LABS: Absolute Lymphocytes (CBC) 1.7 K/uL (0.7-4.9); Absolute Monocytes 0.6 K/uL (0.1-1.3); Absolute Neutrophil 5.7 K/uL (1.8-8.0); Basophils % 0.5 % (0-1.3); Eosinophils % 1.3 % (0-4.4); Hematocrit 43.7 % (36.0-45.0); Lymphocytes % 21.1 % (15.3-44.8); MPV 8.4 fL (7.6-11.3); Monocytes % 7.1 % (3.3-12.3); Protime INR 1.04
--- NOTE | 2018-07-26 14:27 | RAD REPORT ---
EXAM DESCRIPTION: RAD - Chest Single View - 07/26/2018 2:19 pm CLINICAL HISTORY: Chest pain COMPARISON: November 2017 TECHNIQUE: AP portable chest image was obtained 1417 hours . FINDINGS: No focal mass, consolidation or significant failure finding. Lung markings are prominent b ut not clearly different. Heart and vasculature are normal. No measurable pleural effusion and no pne umothorax. No acute bony abnormality seen. No acute aortic findings suspected. IMPRESSION: No acute cardiopulmonary process. Chest findings are similar to comparison.
[2018-07-26 14:41] LABS: ALT/SGPT 25 U/L (12-78); AST/SGOT 14 U/L (15-37); Albumin 3.7 g/dL (3.4-5.0); Alkaline Phosphatase 103 U/L (45-117); BUN Blood Urea Nitrogen 13 mg/dL (7-18); Bicarbonate 24 mmol/L (21-32); Bilirubin Direct 0.1 mg/dL (0-0.2); Bilirubin Total 0.4 mg/dL (0.2-1.0); Glucose Level 151 mg/dL (74-106); NT PRO-BNP 31 pg/mL (<125); Potassium 3.8 mmol/L (3.5-5.1); Protein, Total 7.9 g/dL (6.4-8.2); Sodium Level 140 mmol/L (136-145); Troponin (Emerg Dept Use Only) < 0.02 ng/mL (0.0-0.045)
[2018-07-26] MEDS ORDERED: MORPHINE 2 MG/ML SYR ONE (14:44)
[2018-07-26] MEDS ORDERED: METOPROLOL TAR 25 MG TAB ONE (14:44)
[2018-07-26] MEDS ORDERED: ASPIRIN 81 MG CHEWABLE TABLET ONE (14:44)
[2018-07-26] MEDS ORDERED: FAMOTIDINE 20 MG/2 ML VIAL IV ONE (14:45)
[2018-07-26] MEDS ORDERED: ONDANSETRON 4 MG/2 ML VIAL ONE (14:45)
[2018-07-26] MEDS ORDERED: ENOXAPARIN 100 MG/ML SYR SQ ONE (14:45)
--- NOTE | 2018-07-26 14:47 | P.HP ---
Certification for Inpatient Patient admitted to: Observation With expected LOS: <2 Midnights Patient will require the following post-hospital care: None Practitioner: I am a practitioner with admitting privileges, knowledge of patient current condition, hospital course, and medical plan of care. Services: Services provided to patient in accordance with Admission requirements found in Title 42 Section 412.3 of the Code of Federal Regulations Patient History Date of Service: 07/26/18 Primary Care Provider: Dr. Grimm Reason for admission: Chest pain and uncontrolled hypertension History of Present Illness: 57-year-old female presented to the emergency room with chest pain and uncontrolled hypertension. Patient reported chest pain early this morning. She felt heaviness to her chest. It was in the substernal region. It would radiate to the back and to the arms bilateral, mainly to the left side. It was associated with some shortness of breath, fatigue and palpitation. Patient denied any nausea, vomiting. Chest pain occurred at rest. No relief the pain was noted. Patient took Rolaids and Pepto-Bismol as she thought this was heartburn related. This did not improve her symptoms. Patient with underlying hypertension. She mentions that her blood pressures have been [id number]. Her last visit with her PCP was in May. Medication was adjusted at that time. She is not seen Cardiology in the past. Patient came to the ER for further evaluation. In the ER patient evaluated. Patient with elevated blood pressure of 160/98. Initial CBC unremarkable. Chest x-rayed negative. EKG shows nonspecific EKG changes but no ST elevation noted. Heart score-5. Patient was admitted for observation to further evaluate her chest pain with multiple risk factors and to get better control of blood pressure. When I saw the patient in the ER, chest pain was still reported. Patient does not look in any distress. Patient with history of uncontrolled hypertension, tobacco abuse, alcohol use. Family history of hypertension. No prior cardiac evaluation noted. Patient admits that she has been trying to cut down her alcohol and tobacco use. She is down to half a pack per day and 5 beers per week. She has a strong history of severe alcohol abuse. Patient with multiple risk factors for cardiac disease. Allergies No Known Drug Allergies Allergy (Unverified 06/12/14 22:12) Unknown No Known Allergies Allergy (Uncoded 06/16/16 00:42) Unknown Home medications list reviewed: Yes Home Medications: Aspirin 81 mg PO DAILY #0 tab.chew 10/10/11 Azithromycin [Zithromax] 500 mg PO DAILY #0 tablet 10/10/11 Cefdinir [Omnicef] 300 mg PO BID #0 capsule 10/10/11 Hyoscyamine Sulfate [Levsin TAB*] 10/10/11 Lisinopril BID 10/10/11 Naproxen DAILY 10/10/11 - Past Medical/Surgical History Diabetic: No -: Hypertension -: Tobacco abuse -: Alcohol abuse Past Surgical History: Reviewed- Non-Contributory Psychosocial/ Personal History: Patient lives at home. - Family History Father -: Hypertension Mother -: Hypertension - Social History Smoking Status: Light Tobacco smoker (1-9 cigarettes/day) Counseled patient to stop smoking for: less than 10 minutes Smoking therapy provided: Yes Patient receptive to therapy: Yes Alcohol use: Yes CD- Drugs: No Caffeine use: Yes Place of Residence: Home Review of Systems General: Weakness, As per HPI Eyes: Unremarkable ENT: Unremarkable Respiratory: Shortness of Breath, As per HPI Cardiovascular: Chest Pain, As per HPI Gastrointestinal: Unremarkable Genitourinary: Unremarkable Musculoskeletal: Unremarkable Integumentary: Unremarkable Neurological: Unremarkable Lymphatics: Unremarkable Physical Examination - Physical Exam General: Alert, In no apparent distress, Oriented x3, Cooperative HEENT: Atraumatic, Normocephalic, PERRLA, Mucous membr. moist/pink Neck: Supple, No Thyromegaly Respiratory: Clear to auscultation bilaterally, Normal air movement Cardiovascular: Normal pulses, Regular rate/rhythm Gastrointestinal: Normal bowel sounds, Soft and benign, Non-distended, No tenderness, No masses, No rebound, No guarding Musculoskeletal: No erythema, No tenderness, No warmth Integumentary: No tenderness/swelling, No erythema, No warmth, No cyanosis Neurological: Normal speech, Normal strength at 5/5 x4 extr, Normal tone, Normal affect - Studies Laboratory Data (last 24 hrs) 07/26/18 14:11: Lipase 142 07/26/18 14:11: PT 12.2, INR 1.04 07/26/18 14:11: WBC 8.2, Hgb 14.7, Hct 43.7, Plt Count 340 07/26/18 14:11: Sodium 140, Potassium 3.8, BUN 13, Creatinine 0.87, Glucose 151 H, Magnesium 2.0, Total Bilirubin 0.4, AST 14 L, ALT 25, Alkaline Phosphatase 103 Assessment and Plan - Plan Impression: Chest pain with multiple risk factors for heart disease(hypertension, alcohol/ tobacco abuse, family history of hypertension) Hypertension, uncontrolled Alcohol abuse Tobacco abuse Suspect hyperlipidemia Possible underlying GERD Obesity Plan: Chest pain with multiple risk factors for heart disease(hypertension, alcohol/ tobacco abuse, family history of hypertension): Patient will be admitted for observation to further evaluate her condition. Will monitor cardiac enzymes and telemetry. Heart score calculated-5. Patient with multiple risk factors- HTN/Alcohol/Tobacco/Family Hx of HTN. Will start aspirin, Lipitor and Lovenox for DVT prophylaxis. Will restart lisinopril and diltiazem. Will provide hydralazine as needed for elevated blood pressure. Will try to get her blood pressure is better controlled. Will provide medication for chest pain if required. Cardiology to be consulted to further evaluate, await recommendations. Will obtain urine drug screen. Will also obtain echocardiogram and cardiac stress test to further evaluate her condition. If unremarkable likely discharge tomorrow in the a.m. If abnormal patient will require heart catheterization. Will continue to reassess her condition and monitor closely. Hypertension, uncontrolled: Restart home medication-lisinopril and diltiazem. Will confirm medications. Will add hydralazine as needed. Will adjust medication accordingly for better blood pressure control. Alcohol abuse: Alcohol cessation addressed in detail. She has cut down significantly as patient has significant history of severe alcohol abuse in the past. Will obtain urine drug screen. Tobacco abuse: Will provide nicotine patch. Patient plans to cut down in her use. Tobacco cessation education provided. Suspect hyperlipidemia: Will start Lipitor. Will obtain fasting lipid panel. Possible underlying GERD: Will start Pepcid. If cardiac workup unremarkable this can be further evaluated as an outpatient by GI. Obesity: Will calculate BMI. Will address lifestyle modification education. Discharge Plan: Home Plan to discharge in: 24 Hours - Advance Directives Does patient have a Living Will: No Does patient have a Durable POA for Healthcare: No - Code Status/Comfort Care Code Status Assessed: Yes (Patient is full code.) Time Spent Managing Pts Care (In Minutes): 55
[2018-07-26] MEDS ORDERED: LISINOPRIL 20 MG TAB ONE ×2 (15:25→15:31)
[2018-07-26] MEDS ORDERED: HYDRALAZINE HCL 20 MG/ML VIAL ONE (16:20)
[2018-07-26] MEDS ORDERED: HYDRALAZINE HCL 10 MG TABLET ONE (16:26)
[2018-07-26] MEDS ORDERED: ONDANSETRON 4 MG/2 ML VIAL IV PRN (16:35)
[2018-07-26] MEDS ORDERED: TRAMADOL HCL 50 MG TAB PO PRN (16:35)
[2018-07-26] MEDS ORDERED: MORPHINE 2 MG/ML SYR IV PRN (16:35)
[2018-07-26 17:20] VITALS: BMI 31.1
[2018-07-26] MEDS: ACETAMINOPHEN 500 MG TAB PO PRN (17:20)
[2018-07-26 18:39] LABS: Troponin I 0.45 ng/mL (0.0-0.045)
[2018-07-26 18:45] LABS: Thyroid Stimulating Hormone 1.67 uIU/mL (0.360-3.740)
[2018-07-26] MEDS: FAMOTIDINE 20 MG TAB PO SCH (20:57)
[2018-07-26] MEDS: HYDRALAZINE HCL 20 MG/ML VIAL IV PRN (20:58)
[2018-07-26] MEDS ORDERED: ATORVASTATIN 40 MG TAB PO SCH (21:00)
[2018-07-26] MEDS: NITROGLYCERIN 0.4 MG/TAB SL PRN (22:29)
[2018-07-26 23:04] LABS: Urine Appearance CLEAR; Urine Bilirubin NEGATIVE (NEG); Urine Blood NEGATIVE (NEG); Urine Color YELLOW; Urine Glucose NEGATIVE (NEG); Urine Protein NEGATIVE (NEG); Urine Urobilinogen 0.2 mg/dL (0.2-1.0)
[2018-07-26 23:18] LABS: Urine Microscopic Reflex NO UMIC
[2018-07-26 23:22] LABS: Barbiturates NEGATIVE (NEGATIVE); Benzodiazepines NEGATIVE (NEGATIVE); Cocaine POSITIVE (NEGATIVE); METHAMPHETAM NEGATIVE (NEGATIVE); Methadone NEGATIVE (NEGATIVE); Opiates POSITIVE (NEGATIVE); Phencyclidine NEGATIVE (NEGATIVE); THC Cannibis POSITIVE (NEGATIVE)
[2018-07-27] MEDS: HYDRALAZINE HCL 20 MG/ML VIAL IV PRN ×2 (03:24→17:12)
[2018-07-27 04:05] LABS: Magnesium 1.8 mg/dL (1.8-2.4)
[2018-07-27 04:50] LABS: Troponin I 2.65 ng/mL (0.0-0.045)
[2018-07-27 04:51] LABS: CKMB Creatine Kinase MB 28.6 ng/mL (0.3-3.6)
[2018-07-27] MEDS: NITROGLYCERIN 0.4 MG/TAB SL PRN (05:01)
[2018-07-27] MEDS ORDERED: MAGNESIUM SULFATE 1 gm IVPB 1 GM/100 ML BAG IV ONE (06:00)
--- NOTE | 2018-07-27 07:59 | EKG ---
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
[2018-07-27] MEDS: ASPIRIN EC 81 MG TAB PO SCH (08:22)
[2018-07-27] MEDS: NICOTINE 21 MG/PAT TD SCH (08:23)
[2018-07-27] MEDS: FAMOTIDINE 20 MG TAB PO SCH ×2 (09:00→21:29)
[2018-07-27] MEDS ORDERED: DILTIAZEM HCL 120 MG SR CAP PO SCH (09:00)
[2018-07-27] MEDS ORDERED: ENOXAPARIN 40 MG/0.4 ML SQ SCH ×2 (09:00)
[2018-07-27] MEDS ORDERED: LISINOPRIL 20 MG TAB PO SCH (09:00)
--- NOTE | 2018-07-27 10:02 | P.PN ---
Subjective Date of Service: 07/27/18 Primary Care Provider: Dr. Grimm Chief Complaint: Chest pain and uncontrolled hypertension Subjective: Other (Patient slightly better today. Blood pressure improved. Patient had elevated troponin) Physical Examination - Vital Signs Temperature: 97.9 F Blood Pressure: 168/77 Pulse: 67 Respirations: 16 Pulse Ox (%): 97 - Physical Exam General: Alert, In no apparent distress, Oriented x3, Cooperative HEENT: Atraumatic Neck: Supple Respiratory: Clear to auscultation bilaterally, Normal air movement Cardiovascular: Normal pulses, Regular rate/rhythm Gastrointestinal: Normal bowel sounds, Soft and benign, Non-distended, No tenderness, No masses, No rebound, No guarding Musculoskeletal: No erythema, No tenderness, No warmth Integumentary: No tenderness/swelling, No erythema, No warmth, No cyanosis Neurological: Normal speech, Normal strength at 5/5 x4 extr, Normal tone - Studies Laboratory Data (last 24 hrs) 07/26/18 14:11: Lipase 142 07/26/18 14:11: PT 12.2, INR 1.04 07/26/18 14:11: WBC 8.2, Hgb 14.7, Hct 43.7, Plt Count 340 07/26/18 14:11: Sodium 140, Potassium 3.8, BUN 13, Creatinine 0.87, Glucose 151 H, Magnesium 2.0, Total Bilirubin 0.4, AST 14 L, ALT 25, Alkaline Phosphatase 103 Medications List Reviewed: Yes Assessment & Plan Discharge Plan: Home Plan to discharge in: 24 Hours Physician Review Additional Text: Impression: Chest pain with multiple risk factors for heart disease(hypertension, alcohol/ tobacco abuse, family history of hypertension) now with elevated troponin likely related to non ST wave CT and underlying CAD Hypertension, uncontrolled THC and Cocaine abuse Alcohol abuse Tobacco abuse Hyperlipidemia Possible underlying GERD Obesity Plan: Chest pain with multiple risk factors for heart disease(hypertension, alcohol/ tobacco abuse, family history of hypertension) now with elevated troponin likely related to non ST wave CT and underlying CAD: Continue with current medication. Patient with multiple risk factors. Troponin elevated at this time. Case discussed with cardiology. Patient to have heart catheterization today. Await findings and further recommendation. Patient to have echocardiogram as well. Hypertension, uncontrolled: Medications have been adjusted. Further adjustment may be required. Await heart catheterization findings. THC and Cocaine abuse: Patient found to be positive for THC and cocaine. Will address cessation especially considering non ST wave CT and underlying CAD Alcohol abuse: Will continue with alcohol cessation education Tobacco abuse: Will provide nicotine patch. Patient plans to cut down in her use. Tobacco cessation education provided. Hyperlipidemia: Continue with Lipitor. Will obtain fasting lipid panel. Possible underlying GERD: Continue with Pepcid. Lifestyle modification education will be provided. Obesity, BMI 31.1: Continue to address lifestyle modification education. Time Spent Managing Pts Care (In Minutes): 55
[2018-07-27] MEDS ORDERED: HEPA 1000U/500MLS 0 UNIT/0 ML BAG IV ONE (10:48)
--- NOTE | 2018-07-27 10:52 | RAD REPORT ---
EXAM DESCRIPTION: NM - Cardiac Img R Or S Only - 07/27/2018 10:41 am CLINICAL HISTORY: Chest pain COMPARISON: None. TECHNIQUE: The patient was administered 11 mCi of Tc 99m Sestamibi prior to resting SPECT imaging of the heart. The test was then canceled prior to completion of stress imaging. FINDINGS: Exam is incomplete with out the stress sequencing. The rest images show a moderate-sized a mellissa diminished activity along the anterior wall near the apex. There is decreased activity in the inf erolateral wall near the base. Both of these areas are likely attenuation artifact. IMPRESSION: Rest only imaging shows focal defects anterior wall near the apex and inferolateral wall near the base both favored to be soft tissue attenuation artifact. In the absence of stress sequencing, no assessment of ischemia can be made.
[2018-07-27] MEDS ORDERED: NA CHLORIDE 0.9% 500 ML ONE (11:13)
[2018-07-27] MEDS ORDERED: HEPA 1000U/500MLS 1,000 UNIT/500 ML BAG IV ONE (11:13)
[2018-07-27] MEDS ORDERED: ATROPINE SULF 1 MG/10 ML SYR IV ONE (11:14)
[2018-07-27] MEDS ORDERED: NA CHLORIDE 0.9% 0 ML ONE (11:14)
[2018-07-27] MEDS ORDERED: FENTANYL CITR 100 MCG/2 ML ONE (11:22)
[2018-07-27] MEDS ORDERED: MIDAZOLAM HCL 2 MG/2 ML INJ ONE (11:22)
[2018-07-27] MEDS ORDERED: cloNIDine HCl 0.1 MG TAB ONE ×2 (11:47→12:18)
--- NOTE | 2018-07-27 12:58 | ECHO ---
HEIGHT: 5 ft 10 in WEIGHT: 217 lb 0 oz DATE OF STUDY: 07/27/[address]: Priyank Portillo DO 2-DIMENSIONAL: YES M.MODE: YES DOPPLER: YES COLOR FLOW: YES TDS: NO PORTABLE: NO DEFINITY: NO BUBBLE STUDY: NO DIAGNOSIS: HYPERTENSION, ALCOHOL AND TABACCO ABUSE CARDIAC HISTORY: CATHERIZATION: NO SURGERY: NO PROSTHETIC VALVE: NO PACEMAKER: NO MEASUREMENTS (cm) DIASTOLIC (NORMALS) SYSTOLIC (NORMALS) IVSd 1.1 (0.6-1.2) LA Diam 4.0 (1.9-4.0) LVEF 59% LVIDd 3.8 (3.5-5.7) LVIDs 2.6 (2.0-3.5) %FS 31% LVPWd 1.2 (0.6-1.2) Ao Diam 2.4 (2.0-3.7) 2 DIMENSIONAL ASSESSMENT: RIGHT ATRIUM: NORMAL LEFT ATRIUM: NORMAL RIGHT VENTRICLE: NORMAL LEFT VENTRICLE: NORMAL TRICUSPID VALVE: NORMAL MITRAL VALVE: NORMAL PULMONIC VALVE: NORMAL AORTIC VALVE: NORMAL PERICARDIAL EFFUSION: NONE AORTIC ROOT: NORMAL LEFT VENTRICULAR WALL MOTION: NORMAL DOPPLER/COLOR FLOW: MILD TRICUSPID REGURGITATION. COMMENTS: NORMAL LEFT VENTRICULAR SIZE AND FUNCTION. MILD TRICUSPID REGURGITATION. NORMAL RIGHT VENTRICULAR SYSTOLIC PRESSURE. NO WALL MOTION ABNORMALITY. NO EFFUSION. TECHNOLOGIST: Silvina LENTZ
[2018-07-27] MEDS: ACETAMINOPHEN 500 MG TAB PO PRN (13:13)
--- NOTE | 2018-07-27 13:30 | CON ---
Date of Consultation: 07/27/[address] Portillo' service on 07/26/2018. Reason For Consultation: [id number] myocardial infarction. History Of Present Illness: Ms. Fay is a 57-year-old black woman with only history of hypertension . No previous cardiac history. She came in with substernal chest pressure, uncontrolled hypertensio n. The last blood pressure was 168/77. Has substernal chest pain radiating to the back. Some diaph oresis. No nausea, vomiting, shortness of breath, PND, orthopnea, pedal edema, palpitations, or sync ope. First troponin was negative. The second troponin was 2.65. She also had positive MB. Her tri glyceride was 283. Chest x-ray is normal. EKG showed old septal MD versus LVH. She is pain-free no w. Past Medical History: Hypertension. Allergies: NONE. Review of Systems: Negative. Social History: Negative. Family History: Negative. Medications: At home include clonidine, diltiazem, and Zestril. Physical Examination: Vital Signs: Her blood pressure was 168/77, sinus rhythm, afebrile. HEENT: Negative. Neck: Supple without any bruit, lymphadenopathy, JVD, or thyromegaly. Chest: Clear to auscultation and percussion. Cardiac: Revealed a regular rhythm and rate. No murmurs, gallops, or rubs. Abdomen: Benign. Extremities: Revealed no clubbing, cyanosis, or edema. Diagnostic Data: As stated earlier. Also include elevated triglyceride of 283. Impression And Plan: 1.Symptoms of chest pain, hypertension, elevated troponin suggestive of [id number] myocardial infarction. I suggest we do a heart catheterization on Ms. Fay to define her coronary anatomy. Th e case was discussed with her family and Dr. Portillo. She understand the risks and the benefits of th e procedure. She agrees to proceed. 2.Poorly controlled hypertension. 3.Elevated triglycerides. The patient should probably be on statin or fenofibrate after all this is said and done with. GABRIELLA/MATTI Voice ID: [id number] Report ID: [id number]
[2018-07-27] MEDS: METOPROLOL TAR 25 MG TAB PO SCH (17:12)
--- NOTE | 2018-07-27 18:03 | OP ---
Date of Procedure: 07/27/2018 Surgeon: Sabino Canchola MD Charity Fundraiser: Sebas Wheeler and Ms. Magaña. Admitted to Dr. Portillo on 07/26/2018. Procedures: Left heart catheterization, selective coronary arteriogram. Indication: Non ST elevation myocardial infarction. Procedure In Detail: The patient was brought to the analyst microbiology lab, prepped and draped in the routine ster ile fashion, given 4 mg of Versed for IV sedation. She also got 0.1 mg of clonidine because of hyper tension of 195/110. Right common femoral artery access obtained with a 6-Bulgarian sheath. Angiography there was normal. Angio-Seal was used to close the case. A Sonia catheter 6-Bulgarian were used to cannulate the left main and the right main. The right coronary artery was dominant with a 40% stenos is in the middle of it. The LAD was normal. She had 100% occlusion of the small circumflex, which w as probably the culprit lesion. Complications: None. Blood Loss: 5 cc. Postoperative Diagnosis: Coronary artery disease, moderate, 100% occlusion of the circ, nondominant. Plan: Plan is for medical therapy. Total conscious sedation was 30 minutes. GABRIELLA/MATTI Voice ID: [id number] Report ID: [id number]
[2018-07-27] MEDS ORDERED: ATORVASTATIN 40 MG TAB PO SCH (21:00)
[2018-07-27] MEDS: LISINOPRIL 20 MG TAB PO SCH (21:29)
[2018-07-28 04:34] LABS: Magnesium 2.2 mg/dL (1.8-2.4); Potassium 4.1 mmol/L (3.5-5.1)
[2018-07-28] MEDS: METOPROLOL TAR 25 MG TAB PO SCH (05:25)
--- NOTE | 2018-07-28 08:26 | P.DS ---
Admission Date: 07/27/18 Discharge Date: 07/28/18 Primary Care Provider: Dr. Grimm Disposition: ROUTINE DISCHARGE Discharge Condition: GOOD Reason for Admission: Chest pain and uncontrolled hypertension Consultations: Cardiology-Dr. Canchola Procedures: ECHO: EF 59% LEFT VENTRICULAR WALL MOTION: NORMAL DOPPLER/COLOR FLOW: MILD TRICUSPID REGURGITATION. COMMENTS: NORMAL LEFT VENTRICULAR SIZE AND FUNCTION. MILD TRICUSPID REGURGITATION. NORMAL RIGHT VENTRICULAR SYSTOLIC PRESSURE. NO WALL MOTION ABNORMALITY. NO EFFUSION. Heart catheterization: Date of Procedure: 07/27/2018 Surgeon: Sabino Canchola MD Procedures: Left heart catheterization, selective coronary arteriogram. Indication: Non ST elevation myocardial infarction. Procedure In Detail: The right coronary artery was dominant with a 40% stenosis in the middle of it. The LAD was normal. She had 100% occlusion of the small circumflex, which was probably the culprit lesion. Complications: None. Blood Loss: 5 cc. Postoperative Diagnosis: Coronary artery disease, moderate, 100% occlusion of the circ, nondominant. Plan: Plan is for medical therapy. Medical problem list: Chest pain with multiple risk factors for heart disease(hypertension, alcohol/ tobacco abuse, family history of hypertension) with elevated troponin related to non ST wave AR status post heart catheterization showing 100% occlusion of small circumflex and 40% stenosis to right coronary artery-CAD Hypertension, uncontrolled THC and Cocaine abuse Alcohol abuse Tobacco abuse Hyperlipidemia Possible underlying GERD Obesity, BMI 31.1 Brief History of Present Illness: 57-year-old female presented to the emergency room with chest pain and uncontrolled hypertension. Patient reported chest pain early this morning. She felt heaviness to her chest. It was in the substernal region. It would radiate to the back and to the arms bilateral, mainly to the left side. It was associated with some shortness of breath, fatigue and palpitation. Patient denied any nausea, vomiting. Chest pain occurred at rest. No relief the pain was noted. Patient took Rolaids and Pepto-Bismol as she thought this was heartburn related. This did not improve her symptoms. Patient with underlying hypertension. She mentions that her blood pressures have been [id number]. Her last visit with her PCP was in May. Medication was adjusted at that time. She is not seen Cardiology in the past. Patient came to the ER for further evaluation. In the ER patient evaluated. Patient with elevated blood pressure of 160/98. Initial CBC unremarkable. Chest x-rayed negative. EKG shows nonspecific EKG changes but no ST elevation noted. Heart score-5. Patient was admitted for observation to further evaluate her chest pain with multiple risk factors and to get better control of blood pressure. When I saw the patient in the ER, chest pain was still reported. Patient does not look in any distress. Patient with history of uncontrolled hypertension, tobacco abuse, alcohol use. Family history of hypertension. No prior cardiac evaluation noted. Patient admits that she has been trying to cut down her alcohol and tobacco use. She is down to half a pack per day and 5 beers per week. She has a strong history of severe alcohol abuse. Patient with multiple risk factors for cardiac disease. Hospital Course: Patient presented with chest pain with multiple risk factors for CAD. Patient with hypertension, alcohol and tobacco abuse. There is also a family history of hypertension. During her evaluation heart enzymes were elevated indicating non ST wave AR. Patient was seen and evaluated by Cardiology. Heart catheterization showed 100% occlusion of the small circumflex and 40% stenosis to the right coronary artery indicating CAD. Cardiology recommended medical management at this time. Patient has done well post heart catheterization. No chest pain noted. At discharge patient will continue with aspirin 81 mg daily, Lipitor 80 mg daily, and nitroglycerin as needed for chest pain. New blood pressure medications include lisinopril hydrochlorothiazide 20/12.5 mg 1 pill twice daily, metoprolol 50 mg 1 pill twice daily, and Norvasc 10 mg daily. Patient plans to quit tobacco, alcohol, THC and cocaine. Patient admits use but has a plan to quit entirely. Patient is committed to improve her life. Recommend to follow up with cardiology in 1-2 weeks to follow up this hospitalization. Recommend a follow up with her PCP to follow up this hospitalization as well. Patient with hypertension. Blood pressure was uncontrolled. Medications adjusted. Patient no longer taking clonidine and diltiazem. New medications include lisinopril/hydrochlorothiazide, Norvasc and metoprolol. At discharge she will continue with lisinopril hydrochlorothiazide 20/12.5 mg 1 pill twice daily, metoprolol 50 mg 1 pill twice daily, and Norvasc 10 mg daily. Recommend to maintain blood pressures less 150/80. Further adjustment can be done by her PCP or cardiology. Patient has hyperlipidemia. In light of her CAD patient will continue with Lipitor 80 mg daily. Patient likely with underlying GERD. Patient will continue with Pepcid 20 mg 1 pill twice daily. If this persists patient may require GI evaluation as an outpatient. Patient with THC, alcohol, tobacco and cocaine abuse. Patient admits use of cocaine. Patient plans to quit. Patient is committed in improving her lifestyle. She plans to discuss this further with her PCP. Vital Signs/Physical Exam: Temp Pulse Resp BP Pulse Ox 97.0 F 71 17 173/82 H 98 07/28/18 04:00 07/28/18 05:25 07/28/18 04:00 07/28/18 05:25 07/28/18 04:00 General: Alert, In no apparent distress, Oriented x3, Cooperative HEENT: Atraumatic, Mucous membr. moist/pink Neck: Supple, No Thyromegaly Respiratory: Clear to auscultation bilaterally, Normal air movement Cardiovascular: Normal pulses, Regular rate/rhythm Gastrointestinal: Normal bowel sounds, Soft and benign, Non-distended, No tenderness, No masses, No rebound, No guarding Musculoskeletal: No erythema, No tenderness, No warmth Integumentary: No tenderness/swelling, No erythema, No warmth, No cyanosis Neurological: Normal speech, Normal strength at 5/5 x4 extr, Normal tone, Normal affect Laboratory Data at Discharge: WBC 8.2 K/uL (4.3-10.9) 07/26/18 14:11 Hgb 14.7 g/dL (12.0-15.0) 07/26/18 14:11 Hct 43.7 % (36.0-45.0) 07/26/18 14:11 Plt Count 340 K/uL (152-406) 07/26/18 14:11 PT 12.2 SECONDS (9.5-12.5) 07/26/18 14:11 INR 1.04 07/26/18 14:11 Sodium 138 mmol/L (136-145) 07/28/18 03:45 Potassium 4.1 mmol/L (3.5-5.1) 07/28/18 03:45 BUN 12 mg/dL (7-18) 07/28/18 03:45 Creatinine 0.93 mg/dL (0.55-1.3) 07/28/18 03:45 Glucose 125 mg/dL (74-106) H 07/28/18 03:45 Magnesium 2.2 mg/dL (1.8-2.4) 07/28/18 03:45 Total Bilirubin 0.4 mg/dL (0.2-1.0) 07/26/18 14:11 AST 14 U/L (15-37) L 07/26/18 14:11 ALT 25 U/L (12-78) 07/26/18 14:11 Alkaline Phosphatase 103 U/L (45-117) 07/26/18 14:11 Troponin I 2.65 ng/mL (0.0-0.045) H* 07/27/18 03:16 Triglycerides 293 mg/dL (<150) H 07/27/18 03:16 Cholesterol 191 mg/dL (<200) 07/27/18 03:16 HDL Cholesterol 28 mg/dL (40-60) L 07/27/18 03:16 Cholesterol/HDL Ratio 6.82 07/27/18 03:16 Lipase 142 U/L (73-393) 07/26/18 14:11 Home Medications: Amlodipine [Norvasc*] 10 mg PO DAILY #30 tab 07/28/18 Aspirin [Aspirin EC 81 MG] 81 mg PO DAILY #90 tablet. 07/28/18 Atorvastatin Calcium [Lipitor] 80 mg PO DAILY #30 tablet 07/28/18 Famotidine [Pepcid*] 20 mg PO BID #60 tab 07/28/18 Lisinopril/Hydrochlorothiazide [Lisinopril-Hctz 20-12.5 mg Tab] 1 each PO BID # 60 tablet 07/28/18 Metoprolol Tartrate [Lopressor*] 50 mg PO BID 6AM 6PM #60 tab 07/28/18 Nitroglycerin [Nitrostat*] 0.4 mg SL UD PRN #30 tab 07/28/18 New Medications: Amlodipine [Norvasc*] 10 mg PO DAILY #30 tab Aspirin [Aspirin EC 81 MG] 81 mg PO DAILY #90 tablet. Atorvastatin Calcium [Lipitor] 80 mg PO DAILY #30 tablet Famotidine [Pepcid*] 20 mg PO BID #60 tab Lisinopril/Hydrochlorothiazide [Lisinopril-Hctz 20-12.5 mg Tab] 1 each PO BID # 60 tablet Metoprolol Tartrate [Lopressor*] 50 mg PO BID 6AM 6PM #60 tab Nitroglycerin [Nitrostat*] 0.4 mg SL UD PRN #30 tab PRN Reason: Pain Scale 2-4 (Mild) Patient Discharge Instructions: 1. Recommend a follow up with a PCP in 1 week to follow up this hospitalization. 2. Patient presented with chest pain with multiple risk factors for CAD. Patient with hypertension, alcohol and tobacco abuse. There is also a family history of hypertension. During her evaluation heart enzymes were elevated indicating non ST wave AR. Patient was seen and evaluated by Cardiology. Heart catheterization showed 100% occlusion of the small circumflex and 40% stenosis to the right coronary artery indicating CAD. Cardiology recommended medical management at this time. Patient has done well post heart catheterization. No chest pain noted. At discharge patient will continue with aspirin 81 mg daily, Lipitor 80 mg daily, and nitroglycerin as needed for chest pain. New blood pressure medications include lisinopril hydrochlorothiazide 20/12.5 mg 1 pill twice daily, metoprolol 50 mg 1 pill twice daily, and Norvasc 10 mg daily. Patient plans to quit tobacco, alcohol, THC and cocaine. Patient admits use but has a plan to quit entirely. Patient is committed to improve her life. Recommend to follow up with cardiology in 1- 2 weeks to follow up this hospitalization. Recommend a follow up with her PCP to follow up this hospitalization as well. 3. Patient with hypertension. Blood pressure was uncontrolled. Medications adjusted. Patient no longer taking clonidine and diltiazem. New medications include lisinopril/ hydrochlorothiazide, Norvasc and metoprolol. At discharge she will continue with lisinopril hydrochlorothiazide 20/12.5 mg 1 pill twice daily, metoprolol 50 mg 1 pill twice daily, and Norvasc 10 mg daily. Recommend to maintain blood pressures less 150/80. Further adjustment can be done by her PCP or cardiology. 4. Patient has hyperlipidemia. In light of her CAD patient will continue with Lipitor 80 mg daily. 5. Patient likely with underlying GERD. Patient will continue with Pepcid 20 mg 1 pill twice daily. If this persists patient may require GI evaluation as an outpatient. 6. Patient with THC, alcohol, tobacco and cocaine abuse. Patient admits use of cocaine. Patient plans to quit. Patient is committed in improving her lifestyle. She plans to discuss this further with her PCP. Diet: AHA Activity: Ad cory Time spent managing pt's care (in minutes): 55
[2018-07-28] MEDS: NICOTINE 21 MG/PAT TD SCH (08:50)
[2018-07-28] MEDS: FAMOTIDINE 20 MG TAB PO SCH (08:50)
[2018-07-28] MEDS: ASPIRIN EC 81 MG TAB PO SCH (08:51)
[2018-07-28] MEDS: LISINOPRIL 20 MG TAB PO SCH (08:51)
[2018-07-28] MEDS ORDERED: hydroCHLOROthiazide 25 MG TAB PO SCH (09:00)
[2018-07-28] MEDS ORDERED: AMLODIPINE 10 MG TAB PO SCH (09:00)
[2018-07-28 09:24] VITALS: O2SAT 98
[2018-07-28 09:49] VITALS: TEMP 97.1
[2018-07-28 11:04] VITALS: BP 140/90
[2018-07-28] MEDS ORDERED: METOPROLOL TAR 50 MG TAB PO SCH (18:00)
== END 2018-07-28 12:13 | disposition home or self-care (01) | DRG 282 ==
LOC: ER 13:22 → ERHOLD 14:30 → 4TH 16:37 → OBSVTOIN 07-27 09:50
PROVIDERS: ADMIT Family Medicine; ATTEND Family Medicine
PROC: 4A023N7 Measurement of Cardiac Sampling and Pressure, Left Heart, Percutaneous Approach (ICD-10-PCS; principal; 2018-07-27)
PROC: B201YZZ Plain Radiography of Multiple Coronary Arteries using Other Contrast (ICD-10-PCS; 2018-07-27)
DX: I21.4 Non-ST elevation (NSTEMI) myocardial infarction (principal); I10 Essential (primary) hypertension; I25.10 Atherosclerotic heart disease of native coronary artery without angina pectoris; F14.10 Cocaine abuse, uncomplicated; F10.10 Alcohol abuse, uncomplicated; F12.10 Cannabis abuse, uncomplicated; E78.5 Hyperlipidemia, unspecified; E66.9 Obesity, unspecified; Z68.31 Body mass index [BMI] 31.0-31.9, adult; K21.9 Gastro-esophageal reflux disease without esophagitis; Z82.49 Family history of ischemic heart disease and other diseases of the circulatory system; Z79.82 Long term (current) use of aspirin
CPT/HCPCS: 36415; 71045; 78451; 80048; 80061; 80076; 80307; 81003; 82550; 82553; 83690; 83735; 83880; 84439; 84443; 84484; 85025; 85610; 93005; 93306; 93454; 96372; 96374; 96375; 99285; A9500; C1760; C1893; G0378; J0360; J0583; J1650; J2250; J2270; J2405; J3010; J3475

== ENCOUNTER 2023-04-21 03:05 | Inpatient (IN) | payer OTHER ==
--- OUTSIDE RECORDS SUMMARY | 2023-04-21 03:07 | XMS REPORT | Clinical Summary ---
Author Name Unknown Organization [facility] Address [address] [place] [address] Care Team Providers Care Rn Acute Care Name Role Phone Supa Baer MD Primary Care Provider [phone] Monae Perez MD Unavailable [phone] Pratik Haley MD Unavailable Natalie Umana MD Unavailable [phone] Volodymyr Cote MD Unavailable uSpa Baer MD Unavailable Allergies No known active allergies Medications Medication Sig Dispensed Refills Start Date End Date Status diltiazem (CARDIZEM) 90 mg tablet Take 90 mg by mouth twice daily. 0 Active gabapentin (NEURONTIN) 300 mg capsule Take 300 mg by mouth every 8 (eight) hours. pain 0 Active hydrocortisone (ANUSOL-HC) 25 mg suppository Insert 25 mg into the rectum 2 (two) times a day as needed. 0 Active lisinopril (PRINIVIL,ZESTRIL) 40 mg tablet Take 40 mg by mouth twice daily. 0 Active HYDROcodone-acetaminop hen (NORCO) 10 mg-325 mg per tablet Take 1 tablet by mouth as needed. 0 Active cloNIDine HCl (CATAPRES) 0.2 mg tablet Take 0.2 mg by mouth nightly as needed. 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 Normal exam today. Pap smear collected today. We will follow up with these results. - Patient will be scheduled for a screening mammogram. - Hot flashes: Her blood pressure is elevated today. Recommend patient to contact her PCP to follow up for management. - Return to clinic in 6 months for continued surveillance. Surgical History Surgery Date Site/Laterality Comments CO COLONOSCOPY FLX DX W/COLLJ SPEC WHEN PFRMD 02/18/2016 N/A Procedure: DIAGNOSTIC FLEXIBLE COLONOSCOPY PROXIMAL TO SPLENIC FLEXURE; Surgeon: Alex Cedeno MD; Location: MAIN ENDOSCOPY; Service: GASTROENTEROLOGY CO SIGMOIDOSCOPY FLX W/BIOPSY SINGLE/MULTIPLE 04/17/2016 Anus/N/A Procedure: FLEXIBLE SIGMOIDOSCOPY WITH BIOPSY; Surgeon: Bashir Chapman MD; Location: MAIN ENDOSCOPY; Service: GASTROENTEROLOGY Medical History Medical History Date Comments Cancer Vaginal Hypertension Family History Medical History Relation Name Comments -Breast cancer Mother Lung cancer Mother Prostate cancer Paternal Uncle Relation Name Status Comments Mother conflict in hx: breast v. lung - please resolve Paternal Uncle Alive Social History Tobacco Use Types Packs/Day Years Used Date Smoking Tobacco: Former Cigarettes 0.5 32 1 982 - 2014 Alcohol Use Standard Drinks/Week Comments Yes 3 (1 standard drink = 0.6 oz pur e alcohol) Sex and Gender Information Value Date Recorded Sex Assigned at Not on file Gender Identity Not on file Sexual Orientation Not on file Obstetrics History Plan of Treatment Health Maintenance Due Date Last Done Comments COVID-19 Vaccination (#1) 01/28/1962 Care Teams Rn Acute Care Relationship Specialty Start Date End Date Supa Baer MD [address] [place] [place] [id number] PCP - General 05/02/15 Monae Perez MD [address] [place] [place] [address] [id number] Physician 05/09/15 Pratik Haley MD [address] [place] [place] [id number] Physician 05/09/15 Natalie Umana MD [address] [place] [place] [address] [id number] Physician 05/09/15 Volodymyr Cote MD [address] [place] [place] [id number] Physician 05/09/15 Supa Baer MD [address] [place] [place] [address] [id number] Physician 05/09/15
[2023-04-21 03:41] LABS: Protime INR 1.36
[2023-04-21 03:42] LABS: Absolute Lymphocytes (CBC) 1.2 K/uL (0.7-4.9); Hematocrit 28.5 % (36.0-45.0); Lymphocytes % 10.1 % (15.3-44.8); MCV 84.7 fL (80-100); MPV 6.3 fL (7.6-11.3); Platelets 703 thou/uL (152-406); RBC Red Blood Cell Count 3.36 M/uL (3.86-4.86)
[2023-04-21] MEDS ORDERED: ONDANSETRON 4 MG/2 ML VIAL ONE (03:43)
[2023-04-21] MEDS ORDERED: MORPHINE 4 MG/ML SYR ONE (03:43)
[2023-04-21 03:55] LABS: Albumin 2.1 g/dL (3.4-5.0); Bilirubin Direct 0.1 mg/dL (0-0.2); Bilirubin Indirect, Calculated 0.2 mg/dL (0.2-0.8); Bilirubin Total 0.3 mg/dL (0.2-1.0); Magnesium 1.8 mg/dL (1.6-2.4); Potassium 3.9 mEq/L (3.5-5.1); Protein, Total 8.2 g/dL (6.4-8.2); Troponin High Sensitivity 10.3 pg/mL (<58.9)
[2023-04-21] MEDS ORDERED: HYDRALAZINE HCL 25 MG TABLET ONE (03:58)
[2023-04-21] MEDS ORDERED: NA CHLORIDE 0.9% 1,000 ML ONE (03:59)
[2023-04-21] MEDS ORDERED: DIAZEPAM 5 MG TABLET ONE (03:59)
[2023-04-21 04:33] LABS: C-Reactive Protein 99.8 mg/L (<3.00)
[2023-04-21 04:34] LABS: Thyroid Stimulating Hormone 3.78 uIU/mL (0.358-3.740)
[2023-04-21 05:00] LABS: SARS-CoV-2 Antigen Rapid Res Negative (Negative)
--- NOTE | 2023-04-21 06:11 | EDPHYS ---
Physician Documentation [facility] Name: Marleny Fay Age: 62 yrs Sex: Female : 1960 Arrival Date: 04/21/2023 Time: 03:05 Bed 6 Private MD: ED Physician Aime Saini HPI: 04/21 03:20 This 62 yrs old Black Female presents to ER via EMS with complaints of Chest Pain, sp4 Shortness Of Breath. 06:10 62-year-old female presents with EMS for acute onset chest pain starting at 1 AM sp4 described as midsternal heaviness. Patient has a history of diabetes hypertension. Patient's primary physician is Dr. Olson. Prior sales producer Dr. Johnson . Patient is here because of bothersome midsternal chest pressure. Denied shortness of breath or diaphoresis. Denied palpitation. 06:12 Patient was diagnosed with COVID on 04/02/2023. At [facility] ER.. sp4 Historical: - Allergies: 03:12 INFLUENZA VIRUS VACCINES; km8 03:16 Bactrim; km8 - PMHx: 03:11 Hypertension; cancer (Hypertension); Diabetes mellitus; km8 - PSHx: 03:11 Colostomy; urostomy; km8 - Immunization history:: Client reports receiving the 2nd dose of the Covid vaccine, Flu vaccine is not up to date. - Social history:: Smoking status: Patient/guardian denies using tobacco, but has a distant history of tobacco abuse, Patient/guardian denies using alcohol, street drugs. - Family history:: not pertinent. ROS: 06:10 Constitutional: Negative for fever, chills, and weight loss, positive midsternal chest sp4 pressure 06:10 All other systems are negative, Exam: 06:10 Constitutional: This is a well developed, well nourished patient who is awake, alert, sp4 and in no acute distress. Head/Face: Normocephalic, atraumatic. Eyes: Pupils equal round and reactive to light, extra-ocular motions intact. Lids and lashes normal. Conjunctiva and sclera are not injected. Cornea within normal limits. Periorbital areas with no swelling, redness, or edema. ENT: Nares patent. No nasal discharge, no septal abnormalities noted. Tympanic membranes are normal and external auditory canals are clear. Oropharynx with no redness, swelling, or masses, exudates, or evidence of obstruction, uvula midline. Mucous membranes moist. Neck: Trachea midline, no thyromegaly or masses palpated, and no cervical lymphadenopathy. Supple, full range of motion without nuchal rigidity, or vertebral point tenderness. Chest/axilla: Normal chest wall appearance and motion. Nontender with no deformity. No lesions are appreciated. Cardiovascular: Regular rate and rhythm with a normal S1 and S2. No gallops, murmurs, or rubs. Normal PMI, no JVD. No pulse deficits. Respiratory: Lungs have equal breath sounds bilaterally, clear to auscultation and percussion. No rales, rhonchi or wheezes noted. No increased work of breathing, no retractions or nasal flaring. Abdomen/GI: Soft, with normal bowel sounds. No distension or tympany. No guarding or rebound. No evidence of tenderness throughout. Back: No spinal tenderness. No costovertebral tenderness. Skin: Warm, dry with normal turgor. Normal color with no rashes, no lesions, and no evidence of cellulitis. MS/ Extremity: Pulses equal, no cyanosis. Neurovascular intact. Full, normal range of motion. Neuro: Awake and alert, GCS 15, oriented to person, place, time, and situation. Cranial nerves II-XII grossly intact. Motor strength 5/5 in all extremities. Sensory grossly intact. Psych: Awake, alert, with orientation to person, place and time. Behavior, mood, and affect are within normal limits 06:12 ECG was reviewed by the Attending Physician. at a rate of 79 Vital Signs: 03:08 BP 180 / 98; Pulse 84; Resp 16; Temp 99(O); Pulse Ox 100% on R/A; Weight 88.45 kg (R); km8 Height 5 ft. 7 in. (R); Pain 10/10; 04:09 BP 177 / 96; Pulse 74; Resp 16; Pulse Ox 100% on R/A; km8 05:42 BP 135 / 84; Pulse 80; Resp 17 S; Pulse Ox 100% on R/A; jw7 06:00 BP 156 / 98; Pulse 75; Resp 16; Pulse Ox 100% on R/A; km8 06:30 BP 170 / 93; Pulse 83; Resp 16; Pulse Ox 100% on R/A; km8 03:08 Body Mass Index 30.54 (88.45 kg, 170.18 cm) [facility] 03:08 Pain Scale: Adult km8 MDM: 03:21 Patient medically screened. sp4 05:56 ED course: EXAM: CTAngiography Chest With Intravenous Contrast CLINICAL HISTORY: The sp4 patient is 62 years old and is Female; CHEST PAIN TECHNIQUE: Axial computed tomographic angiography images of the chest with intravenous contrast. Sagittal and coronal reformatted images were created and reviewed. This CT exam was performed using one or more of the following dose reduction techniques: automated exposure control, adjustment of the mA and/or kV according to patient size, and/or use of iterative reconstruction technique. MIP reconstructed images were created and reviewed. COMPARISON: No relevant prior studies available. FINDINGS: Pulmonary arteries: No definite PE identified. Aorta: No thoracic aortic aneurysm. Lungs: Mild scarring in the bilateral lower lobes. No groundglass opacities or focal consolidation to suggest pneumonia. Pleural space: No significant effusion. No pneumothorax. Heart: No cardiomegaly. Coronary artery calcifications. Mediastinum: Abnormal soft tissue density in the region of the esophagus, distal to the samuel. No pneumomediastinum. Bones/joints: Sclerotic osseous lesions in the T6 vertebral body and manubrium sternum. No acute rib fracture visualized. No dislocation. Soft tissues: Unremarkable. Lymph nodes: No pathologically enlarged hilar or anterior mediastinal lymph nodes. Adrenals: Enlarged left adrenal gland, incompletely evaluated. IMPRESSION: 1. Abnormal soft tissue density in the region of the esophagus, distal to the samuel. It is uncertain if this represents esophageal pathology, paraesophageal adenopathy and/or unopacified vascular structure. Study protocol was for PE evaluation. Standard CT chest with IV contrast may be of further utility. 2. Sclerotic osseous lesions in the T6 vertebral body and manubrium sternum, concerning for metastatic disease. 3. Enlarged left adrenal gland, incompletely evaluated. 4. No definite PE identified.. 06:08 ED course: CT revealed - IMPRESSION: 1. Abnormal soft tissue density in the region of sp4 the esophagus, distal to the samuel. It is uncertain if this represents esophageal pathology, paraesophageal adenopathy and/or unopacified vascular structure. Study protocol was for PE evaluation. Standard CT chest with IV contrast may be of further utility. 2. Sclerotic osseous lesions in the T6 vertebral body and manubrium sternum, concerning for metastatic disease. 3. Enlarged left adrenal gland, incompletely evaluated. 4. No definite PE identified.. ED course: And warrants admission for rule out ACS. 06:12 Differential diagnosis: acute myocardial infarction, acute pericarditis, anxiety, sp4 coronary artery disease chest wall pain, congestive heart failure costochondritis, esophagitis, gastritis. HEART Score: History: Moderately Suspicious (1), ECG: Normal (0), Age: > 45 and < 65 years (1), Risk Factors: > or = 3 Risk factors for atherosclerotic disease (2), Troponin: < or = 1 x Normal Limit (0), Total Score = 4. The patient was not given aspirin in the Emergency Department. Administered by EMS. Data reviewed: vital signs, nurses notes, EMS record, old medical records, lab test result(s), EKG, radiologic studies, CT scan, plain films. Consideration of Admission/Observation Patient was admitted/placed on observation. Escalation of care including admission/observation considered. Management of patient was discussed with the following: Hospitalist: Admit team . 04/21 03:21 Order name: Basic Metabolic Panel; Complete Time: sp4 04/21 03:21 Order name: CBC with Diff; Complete Time: sp4 04/21 03:21 Order name: LFT's; Complete Time: sp4 04/21 03:21 Order name: Magnesium; Complete Time: sp4 04/21 03:21 Order name: NT PRO-BNP; Complete Time: sp4 04/21 03:21 Order name: PT-INR; Complete Time: sp4 04/21 03:21 Order name: Troponin HS; Complete Time: : sp4 04/21 03:40 Order name: Influenza Screen (a \T\ B); Complete Time: 06:14 sp4 04/21 03:40 Order name: SARS RAPID; Complete Time: : sp4 04/21 04:15 Order name: C-Reactive Protein; Complete Time: 05: EDMS 04/21 04:15 Order name: T4 Free; Complete Time: EDMS 04/21 04:15 Order name: Thyroid Stimulating Hormone; Complete Time: : EDMS 04/21 06:44 Order name: Urinalysis w/ reflexes EDMS 04/21 06:44 Order name: Basic Metabolic Panel EDSD 04/21 06:44 Order name: Basic Metabolic Panel EDSD 04/21 06:44 Order name: CBC with Automated Diff EDMS 04/21 06:44 Order name: CBC with Automated Diff EDMS 04/21 06:44 Order name: Magnesium EDSD 04/21 06:44 Order name: Magnesium EDMS 04/21 06:44 Order name: Troponin High Sensitivity EDSD 04/21 06:44 Order name: Troponin High Sensitivity EDMS 04/21 06:44 Order name: Troponin High Sensitivity EDMS 04/21 06:44 Order name: Troponin High Sensitivity [facility] 04/21 06:45 Order name: Lipid Profile EDSD 04/21 06:45 Order name: Lipid Profile [facility] 04/21 03:21 Order name: XRAY Chest (1 view) [facility] 04/21 03:40 Order name: CT Chest For PE Angio 4 04/21 03:21 Order name: EKG; Complete Time: 03:21 sp4 04/21 06:42 Order name: CONS Physician Consult [facility] 04/21 03:21 Order name: Cardiac monitoring; Complete Time: 03:28 sp4 04/21 03:21 Order name: EKG - Nurse/Tech; Complete Time: 03:42 sp4 04/21 03:21 Order name: IV Saline Lock; Complete Time: 03:28 sp4 04/21 03:21 Order name: Labs collected and sent; Complete Time: 03:28 sp4 04/21 03:21 Order name: O2 Per Protocol; Complete Time: 03:28 sp4 04/21 03:21 Order name: O2 Sat Monitoring; Complete Time: 03:28 sp4 EC:12 Rate is 79 beats/min. Rhythm is regular, Normal Sinus Rhythm. QRS [place] is Normal. [place] sp4 interval is normal. QRS interval is normal. QT interval is normal. No Q waves. T waves are Normal. No ST changes noted. Clinical impression: Normal ECG. Interpreted by me. Reviewed by me. Administered Medications: 03:47 Drug: morphine IVP or IV 4 mg IVP once over 4 mins Route: IVP; Infused Over: 4 mins; km8 Site: right forearm; 04:00 Follow up: Response: No adverse reaction; Pain is decreased 03:47 Drug: Ondansetron IVP 4 mg IVP once; over 2 minutes Route: IVP; Site: right forearm; km8 04:00 Follow up: Response: No adverse reaction 8 04:09 Drug: Diazepam PO 5 mg PO once Route: PO; km8 05:56 Follow up: Response: No adverse reaction 04:09 Drug: NS 0.9% IV 1000 ml IV at 125 ml/hr continuous Route: IV; Rate: 125 ml/hr; Site: km8 right forearm; 04:09 Drug: HydrALAZINE PO 50 mg PO once Route: PO; km8 05:57 Follow up: Response: No adverse reaction 8 Disposition Summary: 04/21/23 06:09 Hospitalization Ordered Notes: Hospitalization Status: Observation sp4 Location: Telemetry/MedSurg (observation) sp4 Condition: Stable sp4 Problem: new sp4 Symptoms: have improved sp4 Bed/Room Type: Standard sp4 Provider: Clementine Villalpando(04/21/23 06:42) sp4 Room Assignment: [facility](04/21/23 07:16) [facility] Diagnosis - Unstable angina sp4 Forms: - Medication Reconciliation Form sp4 - SBAR form sp4 - Leadership Thank You Letter sp4 Signatures: Dispatcher [employer] EDMS Rajesh Gilman RN RN ja1 Aime Saini MD MD sp4 Yani Dowling RN RN km8 Corrections: (The following items were deleted from the chart) 03:12 03:11 Allergies: No Known Allergies; [facility] 03:12 03:11 PMHx: Hypertensive disorder; [facility] 04:15 03:41 C-REACTIVE PROTEIN+C.LAB.BRZ ordered. EDMS EDMS 04:15 03:41 THYROID STIMULAT HORMONE+C.LAB.BRZ ordered. EDMS EDMS 04:15 03:41 T4 FREE+C.LAB.BRZ ordered. EDMS EDMS 06:42 06:09 Remi Fulton sp4 sp4 07:16 06:09 spJammie alegria
--- NOTE | 2023-04-21 06:11 | ER ---
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 Coronavirus km8 screen: Client denies travel out of the [place] in the last 14 days. Ebola Screen: No symptoms or risks identified at this time. Initial Sepsis Screen: Does the patient meet any 2 criteria? No. Patient's initial sepsis screen is negative. Does the patient have a suspected source of infection? No. Patient's initial sepsis screen is negative. Risk Assessment: Do you want to hurt yourself or someone else? Patient reports no desire to harm self or others. Onset of symptoms was April 21, 2023. 03:08 Method Of Arrival: EMS: [facility] km8 03:08 Acuity: NARENDRA 2 km8 Triage Assessment: 03:12 General: Appears in no apparent distress. comfortable, Behavior is calm, cooperative, km8 appropriate for age. Pain: Complains of pain in chest Pain radiates to back Pain currently is 10 out of 10 on a pain scale. Quality of pain is described as pressure, Pain began suddenly, 30 min ago. EENT: No signs and/or symptoms were reported regarding the EENT system. Neuro: Level of Consciousness is awake, alert, obeys commands, Oriented to person, place, time, situation. Cardiovascular: Reports chest pain, shortness of breath, Denies nausea, Capillary refill < 3 seconds Patient's skin is warm and dry. Respiratory: Airway is patent Respiratory effort is even, unlabored, Respiratory pattern is regular, symmetrical. GI: Colostomy site. : urostomy. Derm: No signs and/or symptoms reported regarding the dermatologic system. Skin is intact, is healthy with good turgor, Skin is dry, Skin is pink, warm \T\ dry. normal, Skin temperature is warm. Musculoskeletal: No signs and/or symptoms reported regarding the musculoskeletal system. Circulation, motion, and sensation intact. Range of motion: intact in all extremities. Historical: - Allergies: 03:12 INFLUENZA VIRUS VACCINES; km8 03:16 Bactrim; km8 - PMHx: 03:11 Hypertension; cancer (Hypertension); Diabetes mellitus; km8 - PSHx: 03:11 Colostomy; urostomy; km8 - Immunization history:: Client reports receiving the 2nd dose of the Covid vaccine, Flu vaccine is not up to date. - Social history:: Smoking status: Patient/guardian denies using tobacco, but has a distant history of tobacco abuse, Patient/guardian denies using alcohol, street drugs. - Family history:: not pertinent. Screenin:14 [facility] ED Fall Risk Assessment (Adult) History of falling in the last 3 months, km8 including since admission No falls in past 3 months (0 pts) Confusion or Disorientation No (0 pts) Intoxicated or Sedated No (0 pts) Impaired Gait No (0 pts) Mobility Assist Device Used No (0 pt) Altered Elimination No (0 pt) Score/Fall Risk Level 0 - 2 = Low Risk Oriented to surroundings, Maintained a safe environment, Educated pt \T\ family on fall prevention, incl call for assistance when getting out of bed, Assessed \T\ reinforced patient's understanding of fall precautions. Abuse screen: Denies threats or abuse. Denies injuries from another. Nutritional screening: No deficits noted. Tuberculosis screening: No symptoms or risk factors identified. Assessment: 03:14 Reassessment: see triage assessment/notes. [facility] 04:09 Reassessment: Patient appears in no apparent distress at this time. Patient and/or km8 family updated on plan of care and expected duration. Pain level reassessed. Patient is alert, oriented x 3, equal unlabored respirations, skin warm/dry/pink. Patient denies pain at this time. Patient states feeling better. Patient states symptoms have improved. 05:00 Reassessment: Patient appears in no apparent distress at this time. Patient and/or jw7 family updated on plan of care and expected duration. Pain level reassessed. Patient is alert, oriented x 3, equal unlabored respirations, skin warm/dry/pink. 06:00 Reassessment: Patient appears in no apparent distress at this time. No changes from 8 previously documented assessment. Patient and/or family updated on plan of care and expected duration. Pain level reassessed. Patient is alert, oriented x 3, equal unlabored respirations, skin warm/dry/pink. Vital Signs: 03:08 BP 180 / 98; Pulse 84; Resp 16; Temp 99(O); Pulse Ox 100% on R/A; Weight 88.45 kg (R); km8 Height 5 ft. 7 in. (R); Pain 10/10; 04:09 BP 177 / 96; Pulse 74; Resp 16; Pulse Ox 100% on R/A; km8 05:42 BP 135 / 84; Pulse 80; Resp 17 S; Pulse Ox 100% on R/A; jw7 06:00 BP 156 / 98; Pulse 75; Resp 16; Pulse Ox 100% on R/A; km8 06:30 BP 170 / 93; Pulse 83; Resp 16; Pulse Ox 100% on R/A; km8 03:08 Body Mass Index 30.54 (88.45 kg, 170.18 cm) km8 03:08 Pain Scale: Adult km8 ED Course: 03:06 Patient arrived in ED. jj6 03:08 Yani Dowling, RN is Primary Nurse. km8 03:11 Triage completed. km8 03:12 Arm band placed on right wrist. km8 03:14 Patient has correct armband on for positive identification. Bed in low position. Call km8 light in reach. Side rails up X2. Client placed on continuous cardiac and pulse oximetry monitoring. NIBP monitoring applied. Warm blanket given. 03:14 No provider procedures requiring assistance completed. Patient maintains SpO2 km8 saturation greater than 95% on room air. 03:20 Aime Saini MD is Attending Physician. sp4 03:24 Inserted saline lock: 22 gauge in right forearm, using aseptic technique. Blood oe collected. 03:28 Basic Metabolic Panel Sent. km8 03:28 CBC with Diff Sent. km8 03:28 LFT's Sent. km8 03:28 Magnesium Sent. km8 03:28 NT PRO-BNP Sent. km8 03:28 PT-INR Sent. km8 03:28 Troponin HS Sent. km8 03:32 XRAY Chest (1 view) In Process Unspecified. EDMS 04:42 CT Chest For PE Angio In Process Unspecified. EDMS 06:09 Remi Fulton is Hospitalizing Provider. sp4 06:42 Hospitalizing Provider role handed off by Remi Fulton sp4 06:42 Clementine Villalpando MD is Hospitalizing Provider. sp4 Administered Medications: 03:47 Drug: morphine IVP or IV 4 mg IVP once over 4 mins Route: IVP; Infused Over: 4 mins; km8 Site: right forearm; 04:00 Follow up: Response: No adverse reaction; Pain is decreased 8 03:47 Drug: Ondansetron IVP 4 mg IVP once; over 2 minutes Route: IVP; Site: right forearm; km8 04:00 Follow up: Response: No adverse reaction km8 04:09 Drug: Diazepam PO 5 mg PO once Route: PO; km8 05:56 Follow up: Response: No adverse reaction km8 04:09 Drug: NS 0.9% IV 1000 ml IV at 125 ml/hr continuous Route: IV; Rate: 125 ml/hr; Site: km8 right forearm; 04:09 Drug: HydrALAZINE PO 50 mg PO once Route: PO; km8 05:57 Follow up: Response: No adverse reaction km8 Medication: 03:14 VIS not applicable for this client. km8 Outcome: 06:09 Decision to Hospitalize by Provider. sp4 08:04 Patient left the ED. ph Signatures: Dispatcher [employer] EDMS Monae Blandon RN RN ph Roger Jimenez Jennifer jj6 Carin Santamaria RN RN jw7 Aime Saini MD MD sp4 Yani Dowling RN RN km8 Corrections: (The following items were deleted from the chart) 03:12 03:11 Allergies: No Known Allergies; km8 8 03:12 03:11 PMHx: Hypertensive disorder; km8 km8
--- NOTE | 2023-04-21 06:39 | P.HP ---
Certification for Inpatient Patient admitted to: Observation With expected LOS: <2 Midnights Practitioner: I am a practitioner with admitting privileges, knowledge of patient current condition, hospital course, and medical plan of care. Services: Services provided to patient in accordance with Admission requirements found in Title 42 Section 412.3 of the Code of Federal Regulations Patient History Date of Service: 04/21/23 Reason for admission: Chest pain History of Present Illness: 62-year-old female with a past medical history of hypertension, cancer, diabetes, presents to the emergency room with chest pain that is described as chest heaviness that started at 1 AM. 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 Reports lower extremity edema. Initial troponins were negative, hypertensive urgency blood pressure 180/98, reports medication compliance. Reports history of shoulder injury, shoulder pain, unable to have surgery due to COVID. She reports colostomy, urostomy due to cancer. Daughter is primary historian. plan to admit for chest pain rule out [place], cardiology to consult, Allergies No Known Drug Allergies Allergy (Verified 07/26/18 17:22) Unknown sulfamethoxazole [From Bactrim] Allergy (Verified 04/21/23 08:32) Hives/Rash trimethoprim [From Bactrim] Allergy (Verified 04/21/23 08:32) Hives/Rash No Known Allergies Allergy (Uncoded 06/16/16 00:42) Unknown Home Medications: Amlodipine [Norvasc*] 10 mg PO DAILY #30 tab 07/28/18 Aspirin [Aspirin EC 81 MG] 81 mg PO DAILY #90 tablet. 07/28/18 Atorvastatin Calcium [Lipitor] 80 mg PO DAILY #30 tablet 07/28/18 Famotidine [Pepcid*] 20 mg PO BID #60 tab 07/28/18 Lisinopril/Hydrochlorothiazide [Lisinopril-Hctz 20-12.5 mg Tab] 1 each PO BID #60 tablet 07/28/18 Metoprolol Tartrate [Lopressor*] 50 mg PO BID 6AM 6PM #60 tab 07/28/18 Nitroglycerin [Nitrostat*] 0.4 mg SL UD PRN #30 tab 07/28/18 - Past Medical/Surgical History Diabetic: No -: Hypertension -: Tobacco abuse -: Alcohol abuse -: Cancer -: Urostomy -: Colostomy Psychosocial/ Personal History: Patient lives at home. - Family History Father -: Hypertension Mother -: Hypertension - Social History Alcohol use: No CD- Drugs: No Caffeine use: Yes Place of Residence: Home Review of Systems PER HPI Physical Examination - Physical Exam General: Alert, In no apparent distress, Oriented x3 HEENT: Atraumatic, Normocephalic Neck: Supple, 2+ carotid pulse no bruit Respiratory: Clear to auscultation bilaterally, Normal air movement Cardiovascular: Normal pulses, Regular rate/rhythm, Edema (+1 lower extremity edema) Capillary refill: <2 Seconds Gastrointestinal: Normal bowel sounds, Other (Colostomy, urostomy) Musculoskeletal: No clubbing, No swelling Integumentary: No rashes, No breakdown Neurological: Normal speech, Normal strength at 5/5 x4 extr - Studies Laboratory Data (last 24 hrs) 04/21/23 04/21/23 04/21/23 03:25 03:25 03:25 WBC 12.10 H Hgb 9.3 L Hct 28.5 L Plt Count 703 H PT 14.8 H INR 1.36 Sodium 136 Potassium 3.9 BUN 14 Creatinine 1.10 H Glucose 143 H Magnesium 1.8 Total Bilirubin 0.3 AST 15 ALT 22 Alkaline Phosphatase 92 Microbiology Data (last 24 hrs): 04/21/23 03:53 Nasopharnyx Influenza Type A Antigen Screen - Final 04/21/23 03:53 Nasopharnyx Influenza Type B Antigen Screen - Final Assessment and Plan - Plan Assessment plan Chest pain rule out [place] Hypertensive urgency Cardiology consult, telemetry, Trend troponins, EKG 79 beats/min. Rhythm is regular, Normal Sinus Rhythm. QRS [place] is Normal. [place] interval is normal. QRS interval is normal. QT interval is normal. No Q waves. T waves are Normal. No ST changes noted. presents to the emergency room with chest pain that is described as chest heaviness that started at 1 AM. 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 Aspirin, lipid panel in the a.m., as needed nitro, as needed analgesics, as needed antiantiemetic Elevated CRP CRP 99.8 Acute on chronic kidney injury unknown baseline BUN 14 creatinine 1.10 Trend kidney function Protein albuminemia Albumin 2.1 Subclinical hypothyroidism TSH 3.78, T4 normal 1.26 Essential hypertension unknown control cancer unspecified Colostomy, urostomy Resume appropriate home meds Diabetes type 2 unknown control Sliding scale insulin, Accu-Chek Prior shoulder injury As needed analgesics Fall precaution Full code DVT Lovenox Diet cardiac Discharge Plan: Home - Advance Directives Does patient have a Living Will: No Does patient have a Durable POA for Healthcare: No - Code Status/Comfort Care Code Status: Full Code Critical Care: No Time Spent Managing Pts Care (In Minutes): 55
[2023-04-21] MEDS ORDERED: ACETAMINOPHEN 500 MG TAB PO PRN (06:40)
[2023-04-21] MEDS ORDERED: ONDANSETRON 4 MG/2 ML VIAL IV PRN (06:40)
[2023-04-21] MEDS ORDERED: MORPHINE 2 MG/ML SYR IV PRN (06:43)
[2023-04-21] MEDS ORDERED: ATORVASTATIN 80 MG TAB PO SCH (09:00)
[2023-04-21 09:05] LABS: Specific Gravity > 1.030 (1.005-1.030); Urine Bacteria <20 /HPF (<20); Urine Bilirubin NEGATIVE (Negative); Urine Blood Negative (Negative); Urine Clarity Clear (Clear); Urine Color Light-Yellow (Yellow); Urine Glucose NEGATIVE (Negative); Urine Mucus Slight /HPF (None Seen); Urine Protein TRACE (Negative); Urine RBC 21-50 /HPF (None Seen); Urine Urobilinogen Normal (Normal)
[2023-04-21] MEDS: ASPIRIN 325 MG TAB PO SCH (13:22)
[2023-04-21] MEDS: AMLODIPINE 10 MG TAB PO SCH (13:23)
[2023-04-21] MEDS: NA CHLORIDE 0.9% 500 ML ONE (15:38)
--- NOTE | 2023-04-21 15:43 | RAD REPORT ---
EXAM DESCRIPTION: CT Angiography Chest With Intravenous Contrast CLINICAL HISTORY: The patient is 62 years old and is Female; CHEST PAIN TECHNIQUE: Axial computed tomographic angiography images of the chest with intravenous contrast. S agittal and coronal reformatted images were created and reviewed. This CT exam was performed using one or more of the following dose reduction techniques: automated exposure control, adjustment of t he mA and/or kV according to patient size, and/or use of iterative reconstruction technique. MIP re constructed images were created and reviewed. COMPARISON: No relevant prior studies available. FINDINGS: Pulmonary arteries: No definite PE identified. Aorta: No thoracic aortic aneurysm. Lungs: Mild scarring in the bilateral lower lobes. No groundglass opacities or focal consolidation to suggest pneumonia. Pleural space: No significant effusion. No pneumothorax. Heart: No cardiomegaly. Coronary artery calcifications. Mediastinum: Abnormal soft tissue density in the region of the esophagus, distal to the samuel. No pneumomediastinum. Bones/joints: Sclerotic osseous lesions in the T6 vertebral body and manubrium sternum. No acute rib fracture visualized. No dislocation. Soft tissues: Unremarkable. Lymph nodes: No pathologically enlarged hilar or anterior mediastinal lymph nodes. Adrenals: Enlarged left adrenal gland, incompletely evaluated. IMPRESSION: 1. Abnormal soft tissue density in the region of the esophagus, distal to the samuel. It is uncertain if this represents esophageal pathology, paraesophageal adenopathy and/or unopacified vascular structure. Study protocol was for PE evaluation. Standard CT chest with IV contrast may be of further utility. 2. Sclerotic osseous lesions in the T6 vertebral body and manubrium sternum, concerning for metasta tic disease. 3. Enlarged left adrenal gland, incompletely evaluated. 4. No definite PE identified. Electronically signed by: Radha North MD 04/21/2023 05:40 AM SSIS ARCHITECT Due to temporary technical issues with the PACS/Fluency reporting system, reports are being signed by the in house radiologists without review as a courtesy to insure prompt reporting. The interpreting radiologist is fully responsible for the content of the report.
--- NOTE | 2023-04-21 16:02 | RAD REPORT ---
EXAM DESCRIPTION: XR Chest, 1 View CLINICAL HISTORY: The patient is 62 years old and is Female; CHEST PAIN TECHNIQUE: Single view of the chest. COMPARISON: No relevant prior studies available. FINDINGS: Lungs: No pulmonary vascular congestion or consolidation. Pleural space: Unremarkable. No pneumothorax. Heart: Unremarkable. No cardiomegaly. Mediastinum: Unremarkable. Bones/joints: No acute fracture visualized. Degenerative changes in the AC joints. Upper abdomen: No free air in the visualized upper abdomen. IMPRESSION: No acute cardiopulmonary process identified. Electronically signed by: Radha North MD 04/21/2023 04:31 AM BOWL SANDER Due to temporary technical issues with the PACS/Fluency reporting system, reports are being signed by the in house radiologists without review as a courtesy to insure prompt reporting. The interpreting radiologist is fully responsible for the content of the report.
[2023-04-21] MEDS ORDERED: FENTANYL CITR 100 MCG/2 ML ONE (16:29)
[2023-04-21] MEDS ORDERED: LIDOCAINE 1% 20 ML MDV ONE (16:29)
[2023-04-21] MEDS ORDERED: VERAPAMIL HCL 10 MG/4 ML VIAL IV ONE (16:29)
[2023-04-21] MEDS ORDERED: HEPA 1000U/500MLS 2,000 UNIT/1,000 ML BAG IV ONE (16:29)
[2023-04-21] MEDS ORDERED: HEPARIN 10,000 UNIT/10 ML VIAL IV ONE (16:30)
[2023-04-21] MEDS ORDERED: ATROPINE SULF 1 MG/10 ML SYR IV ONE (16:30)
[2023-04-21] MEDS ORDERED: HEPARIN 5000 UNIT/ML 1 ML VIAL ONE (16:30)
[2023-04-21] MEDS ORDERED: TICAGRELOR 90 MG TABLET PO ONE (16:30)
[2023-04-21] MEDS ORDERED: MIDAZOLAM HCL 2 MG/2 ML INJ ONE (16:30)
[2023-04-21] MEDS ORDERED: CLOPIDOGREL 75 MG TABLET ONE (16:31)
[2023-04-21] MEDS ORDERED: ASPIRIN 325 MG TAB ONE (16:31)
[2023-04-21] MEDS: METOPROLOL TAR 50 MG TAB PO SCH (18:00)
[2023-04-21] MEDS: ATORVASTATIN 80 MG TAB PO SCH (20:56)
[2023-04-22] MEDS: NITROGLYCERIN 0.4 MG/TAB SL PRN (02:22)
--- NOTE | 2023-04-22 03:26 | OP ---
Date of Procedure: 04/21/2023 Surgeon: MARIA ALEJANDRA DUONG Procedure Performed: 1.Selective coronary angiogram. 2.Left heart catheterization. Indications: [id number] myocardial infarction. Access: Right radial artery, 6-Dutch, closed with TR band. Complications: None. Bleeding: Less than 20 mL. Description Of Procedure: After risks, benefits, alternatives were explained, the patient agreed to procedure and signed informed consent. The patient was brought into cardiac catheterization laborato ry, prepped and draped in a sterile fashion. Then, I accessed right radial artery using pediatric mi cropuncture kit, placed a 6-Dutch Slender sheath and took 6-Dutch JR4 catheter into aortic root and across aortic valve and measured the LVEDP. Pullback did not record any gradient and then engaged R CA, took standard views and then exchanged for a 6-Dutch JL3 guide, engaged the left main, took modesta dard views and then removed the guide and the sheath and placed TR band with good hemostasis. Findings: 1.Left main: Large, normal. 2.LAD: Proximal 20%, mid 30%, normal diagonal branches. Rest of LAD is large and normal. 3.Left circumflex: Large vessel. OM is large, has proximal 50% stenosis. There is a branch that c omes off it. It has diffuse 90% stenosis, likely the cause of the heart attack, but it is 0.5 mm ves raisa, so was left alone. 4.RCA: Proximal segment is normal. Mid segment, there is long heavily calcified 60% stenosis. 5.LVEDP is elevated at 50 mmHg. Conclusion: 1.Overall, moderate coronary artery disease, but she has a small branch of the OM likely the culprit , but very small vessel and will be left to medical management. 2.Elevated LVEDP. Recommendation: I recommend to obtain an exercise nuclear stress test. If there are any abnormaliti es in territory of the RCA or of the OM, then we will plan for PCI at a later time. SR/MODL Voice ID: [id number] Report ID: [id number]
--- NOTE | 2023-04-22 03:26 | CON ---
Date of Consultation: 04/21/2023 Reason For Consultation: Chest pain. History Of Present Illness: A 62-year-old female, history of diabetes, hypertension, and is a surviv or of cancer, presented with chest pressure, left sided, radiates to the neck and jaw, as well as lef t lower extremity. The patient's troponin was negative. Second troponin was 1200. She had COVID re cently about 2 weeks ago and recovered and no upper respiratory tract infection symptoms. Past Medical History: As outlined above in HPI. Medications: Refer to reconciliation sheet for detailed list. Allergies: BACTRIM. Family History: No premature coronary artery disease or cancer. Social History: She does not smoke or drink. Does not use any drugs. Review of Systems: All systems reviewed are negative except for mentioned in HPI. Physical Examination: Vital Signs: Reviewed. Head and Neck: Pupils are equal, reactive to light. Intact eye movements. No JVD. No cervical lym phadenopathy. Neck supple. Thyroid is not enlarged. Lungs: Clear to auscultation bilaterally. No rhonchi, rales, or crackles. No accessory muscle use. Heart: Regular rate and rhythm. No extra sounds. Abdomen: Soft, nontender. Bowel sounds positive. No organomegaly. No masses or hernia. No rigidi ty or rebound. Extremities: No edema, clubbing, cyanosis. Intact pulses. Skin: No rash was noted. Neuro: Alert, awake, oriented x3. No acute focal deficits appreciated. Investigations: Troponin 1123. BUN is 14, creatinine 1.0. Hemoglobin is 9.3. Assessment/recommendation: 1.Acute [id number] myocardial infarction. The patient is n.p.o. Take her to the cardiac cath technician ava bustos for coronary angiogram and PCI as needed. Continue baby aspirin for now. 2.Acute renal failure, mild and resolved. 3.Hypertension. Blood pressure controlled. 4.Dyslipidemia. Continue Lipitor 80 mg at bedtime. SR/MODL Voice ID: [id number] Report ID: [id number]
[2023-04-22 06:54] LABS: Absolute Lymphocytes (CBC) 1.4 K/uL (0.7-4.9); Lymphocytes % 10.4 % (15.3-44.8); MCV 84.6 fL (80-100); MPV 6.5 fL (7.6-11.3); Platelets 683 thou/uL (152-406); RBC Red Blood Cell Count 3.54 M/uL (3.86-4.86)
--- NOTE | 2023-04-22 07:07 | P.PN ---
Subjective Date of Service: 04/22/23 Chief Complaint: Chest pain No pain, shortness of breath, edema, - Physical Exam General: Alert, In no apparent distress, Oriented x3 HEENT: Atraumatic, Normocephalic Neck: Supple, 2+ carotid pulse no bruit Respiratory: Clear to auscultation bilaterally, Normal air movement Cardiovascular: Normal pulses, Regular rate/rhythm, Edema (+1 lower extremity edema) Capillary refill: <2 Seconds Gastrointestinal: Normal bowel sounds, Other (Colostomy, urostomy) Musculoskeletal: No clubbing, No swelling Integumentary: No rashes, No breakdown Neurological: Normal speech, Normal strength at 5/5 x4 extr Review of Systems per HPI Physical Examination - Vital Signs Temperature: 97.8 F Blood Pressure: 140/79 Pulse: 90 Respirations: 20 Pulse Ox (%): 98 - Studies Microbiology Data (last 24 hrs): 04/21/23 03:53 Nasopharnyx Influenza Type A Antigen Screen - Final 04/21/23 03:53 Nasopharnyx Influenza Type B Antigen Screen - Final Assessment And Plan - Plan Assessment plan Chest pain rule out CT Hypertensive urgency Cardiology consult, telemetry, Trend troponins, EKG 79 beats/min. Rhythm is regular, Normal Sinus Rhythm. QRS [place] is Normal. [place] interval is normal. QRS interval is normal. QT interval is normal. No Q waves. T waves are Normal. No ST changes noted. presents to the emergency room with chest pain that is described as chest heaviness that started at 1 AM. 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 Aspirin, lipid panel in the a.m., as needed nitro, as needed analgesics, as needed antiantiemetic abnormal CT [id number] outpatient paraesophageal adenopathy and/or unopacified vascular structure CT chest with IV contrast may be of further utility. 04/21 left heart catheterization moderate coronary artery disease, but she has a small branch of the OM likely the culprit, but very small vessel and will be left to medical management per Dr. DUONG 04/22 Stress test moderate coronary artery disease, but she has a small branch of the OM likely the culprit, but very small vessel and will be left to medical management 04/21 CTA of the chest IMPRESSION: 1. Abnormal soft tissue density in the region of the esophagus, distal to the samuel. It is uncertain if this represents esophageal pathology, paraesophageal adenopathy and/or unopacified vascular structure. Study protocol was for PE evaluation. Standard CT chest with IV contrast may be of further utility. 2. Sclerotic osseous lesions in the T6 vertebral body and manubrium sternum, concerning for metastatic disease.3. Enlarged left adrenal gland, incompletely evaluated. 4. No definite PE identified. Elevated CRP CRP 99.8 Acute on chronic kidney injury unknown baseline BUN 14 creatinine 1.10 Trend kidney function Protein albuminemia Albumin 2.1 Subclinical hypothyroidism TSH 3.78, T4 normal 1.26 Essential hypertension unknown control cancer unspecified Colostomy, urostomy Resume appropriate home meds Diabetes type 2 unknown control Sliding scale insulin, Accu-Chek Prior shoulder injury As needed analgesics Fall precaution Full code DVT Lovenox Diet cardiac Discharge Plan: Home - Code Status/Comfort Care Code Status: Full Code Critical Care: No Time Spent Managing PTS Care (In Minutes): 35
[2023-04-22 07:11] LABS: Magnesium 2.1 mg/dL (1.6-2.4); Potassium 4.3 mEq/L (3.5-5.1)
[2023-04-22 07:15] LABS: Troponin High Sensitivity 3681.4 pg/mL (<58.9)
[2023-04-22] MEDS ORDERED: REGADENOSON 0.4 MG/5 ML SYR IV ONE (08:56)
--- NOTE | 2023-04-22 09:42 | RAD REPORT ---
EXAM DESCRIPTION: NM - Rest Stress Cardiac Imaging - 04/22/2023 9:26 am CLINICAL HISTORY: Chest pain. COMPARISON: None. TECHNIQUE: The patient was administered 10.5 mCi of Tc 99m Sestamibi prior to resting SPECT imaging of the heart. The patient was then administered 31.9 mCi of Tc 99m Sestamibi following exercise or ph armacologic stress. Multiplanar SPECT images were reviewed. FINDINGS: A large area of diminished radiotracer uptake involves the inferior apical left ventricul ar myocardium on rest and stress images. Large area diminished radiotracer uptake involves the septal left ventricular myocardium on stress im ages. There is mild reaccumulation of radiotracer on rest images The left ventricular ejection fraction equals 71% IMPRESSION: Large fixed perfusion defect involving the inferior apical left ventricular myocardium h aving the appearance an infarct Large partially reversible perfusion defect septal left ventricular myocardium having the appearance of an infarct with mild vy-infarct ischemia
--- NOTE | 2023-04-22 13:16 | TREADPHA ---
DX: NON ST ELEVATION MYOCARDIAL INFARCTION Date of Study: 04/22/2023 Ht: 5' 7 " Wt: 195 lb 0 oz Consulting Physician: RHODA MEDICATIONS: TYLENOL, NORVASC, ERIN ASPIRIN, LIPITOR, LOPRESSOR, MORPHINE, NITROSTAT, ZOFRAN HISTORY: PHYSICIAL EXAMINATION: RESTING B.P.: 150/80 RESTING H.R.: 91 RESTING EKG: SINUS RHYTHM PROTOCOL: PHARMACOLOGIC EXERCISE TIME: 3:30 B.P. AT PEAK STRESS: 146/65 IMPRESSION: LEXISCAN INJECTED. CARDIOLITE INJECTED - SEE NUCLEAR MEDICINE REPORT. NO CHEST PAIN. NO ARRHYTHMIA, NO VENTRICULAR TACHYCARDIA, NO SUPRAVENTRICULAR TACHYCARDIA.
--- NOTE | 2023-04-22 17:40 | P.DS ---
Admission Date: 04/21/23 Discharge Date: 04/23/23 Disposition: ROUTINE DISCHARGE Reason for Admission: Chest pain Brief History of Present Illness: 62-year-old female with a past medical history of hypertension, cancer, diabetes, presents to the emergency room with chest pain that is described as chest heaviness that started at 1 AM. 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 Reports lower extremity edema. Initial troponins were negative, hypertensive urgency blood pressure 180/98, reports medication compliance. Reports history of shoulder injury, shoulder pain, unable to have surgery due to COVID. She reports colostomy, urostomy due to cancer. Daughter is primary historian. plan to admit for chest pain rule out [place], cardiology to consult, - Physical Exam General: Alert, In no apparent distress, Oriented x3 HEENT: Atraumatic, Normocephalic Neck: Supple, 2+ carotid pulse no bruit Respiratory: Clear to auscultation bilaterally, Normal air movement Cardiovascular: Normal pulses, Regular rate/rhythm, Edema (+1 lower extremity edema) Capillary refill: <2 Seconds Gastrointestinal: Normal bowel sounds, Other (Colostomy, urostomy) Musculoskeletal: No clubbing, No swelling Integumentary: No rashes, No breakdown Neurological: Normal speech, Normal strength at 5/5 x4 extr Hospital Course: 62year-old female patient presented with chest pain. Was noted to have elevated troponin., Hypertensive urgency cardiology was consult: Patient had a left heart cath, stress test. Condition improved with as needed analgesics, antihypertensive medications. Patient tolerating diet, stable for discharge to home with follow-up appointment with primary care physician, follow-up with cardiology after discharge. PROBLEM: Elevated troponin NSTEMI Chest pain Abnormal CT [id number] outpatient paraesophageal adenopathy and/or unopacified vascular structure CT chest with IV contrast may be of further utility. 04/21 left heart catheterization moderate coronary artery disease, but she has a small branch of the OM likely the culprit, but very small vessel and will be left to medical management per Dr. DUONG 04/22 Stress test moderate coronary artery disease, but she has a small branch of the OM likely the culprit, but very small vessel and will be left to medical management 04/21 CTA of the chest IMPRESSION: 1. Abnormal soft tissue density in the region of the esophagus, distal to the samuel. It is uncertain if this represents esophageal pathology, paraesophageal adenopathy and/or unopacified vascular structure. Study protocol was for PE evaluation. Standard CT chest with IV contrast may be of further utility. 2. Sclerotic osseous lesions in the T6 vertebral body and manubrium sternum, concerning for metastatic disease.3. Enlarged left adrenal gland, incompletely evaluated. 4. No definite PE identified. Patient will need to follow-up with cardiology in 1 to 2 weeks. Follow-up with primary care for abnormal CT scan Continue home cardiac medicines as previously prescribed GOAL: Clear understanding of disease process INSTRUCTIONS: Physician Discharge Instructions: -Follow-up with PCP in 1 to 2 weeks -Please call Dr. Villalpando at [phone] if any questions regarding hospital stay -Please call nursing station at [phone] if any nursing or medication questions -Return to the emergency room if symptoms worsen Diet: ADA, low sodium Activity: Fall precautions Vital Signs/Physical Exam: Temp Pulse Resp BP Pulse Ox 98.2 F 111 H 20 166/82 H 96 04/22/23 16:00 04/22/23 17:24 04/22/23 16:00 04/22/23 17:24 04/22/23 16:00 Laboratory Data at Discharge: WBC 13.50 thou/uL (4.3-10.9) H 04/22/23 05:45 Hgb 9.8 g/dL (12.0-15.0) L 04/22/23 05:45 Hct 30.0 % (36.0-45.0) L 04/22/23 05:45 Plt Count 683 thou/uL (152-406) H 04/22/23 05:45 PT 14.8 SECONDS (9.5-12.5) H 04/21/23 03:25 INR 1.36 04/21/23 03:25 Sodium 135 mEq/L (136-145) L 04/22/23 05:45 Potassium 4.3 mEq/L (3.5-5.1) 04/22/23 05:45 BUN 14 mg/dL (7-18) 04/22/23 05:45 Creatinine 1.04 mg/dL (0.55-1.02) H 04/22/23 05:45 Glucose 121 mg/dL (74-106) H 04/22/23 05:45 Magnesium 2.1 mg/dL (1.6-2.4) 04/22/23 05:45 Total Bilirubin 0.3 mg/dL (0.2-1.0) 04/21/23 03:25 AST 15 U/L (15-37) 04/21/23 03:25 ALT 22 U/L (13-56) 04/21/23 03:25 Alkaline Phosphatase 92 U/L (45-117) 04/21/23 03:25 Triglycerides 85 mg/dL (<150) 04/22/23 05:45 Cholesterol 136 mg/dL (<200) 04/22/23 05:45 HDL Cholesterol 36 mg/dL (40-60) L 04/22/23 05:45 Cholesterol/HDL Ratio 3.78 04/22/23 05:45 Home Medications: Amlodipine [Norvasc*] 10 mg PO DAILY #30 tab 07/28/18 Atorvastatin Calcium [Lipitor] 80 mg PO DAILY #30 tablet 07/28/18 Metoprolol Tartrate [Lopressor*] 50 mg PO BID 6AM 6PM #60 tab 07/28/18 Ondansetron [Ondansetron Odt] 1 tab PO Q8HR PRN 04/21/23 Semaglutide [Rybelsus] 30 mg PO DAILY 04/21/23 Sodium Bicarbonate 650 mg PO DAILY 04/21/23 Trazodone [Desyrel*] 1 tab PO BEDTIME PRN 04/21/23 Aspirin Tab [Jose Aspirin*] 325 mg PO DAILY tab 04/23/23 Trazodone [Desyrel*] 50 mg PO BEDTIME 04/23/23 Physician Discharge Instructions: 62year-old female patient presented with chest pain. Was noted to have elevated troponin., Hypertensive urgency cardiology was consult: Patient had a left heart cath, stress test. Condition improved with as needed analgesics, antihypertensive medications. Patient tolerating diet, stable for discharge to home with follow-up appointment with primary care physician, follow-up with after discharge. PROBLEM: Elevated troponin NSTEMI Chest pain Abnormal CT [id number] outpatient paraesophageal adenopathy and/or unopacified vascular structure CT chest with IV contrast may be of further utility. 04/21 left heart catheterization moderate coronary artery disease, but she has a small branch of the OM likely the culprit, but very small vessel and will be left to medical management per Dr. DUONG 04/22 Stress test moderate coronary artery disease, but she has a small branch of the OM likely the culprit, but very small vessel and will be left to medical management 04/21 CTA of the chest IMPRESSION: 1. Abnormal soft tissue density in the region of the esophagus, distal to the samuel. It is uncertain if this represents esophageal pathology, paraesophageal adenopathy and/or unopacified vascular structure. Study protocol was for PE evaluation. Standard CT chest with IV contrast may be of further utility. 2. Sclerotic osseous lesions in the T6 vertebral body and manubrium sternum, concerning for metastatic disease.3. Enlarged left adrenal gland, incompletely evaluated. 4. No definite PE identified. Patient will need to follow-up with cardiology in 1 to 2 weeks. Follow-up with primary care for abnormal CT scan Continue home medicines as previously prescribed GOAL: Clear understanding of disease process INSTRUCTIONS: Physician Discharge Instructions: -Follow-up with PCP in 1 to 2 weeks -Please call Dr. Villalpando at [phone] if any questions regarding hospital stay -Please call nursing station at [phone] if any nursing or medication questions -Return to the emergency room if symptoms worsen Diet: ADA, low sodium Activity: Fall precautions Diet: AHA Activity: Fall precautions Followup: Solis Olson MD [Primary Care Provider] - (Follow-up with cardiology in 1 to 2 weeks) Time spent managing pt's care (in minutes): 55
[2023-04-22] MEDS: TRAZODONE 50 MG TABLET PO SCH (22:20)
[2023-04-23 04:37] VITALS: BP 136/61
[2023-04-23 07:41] LABS: Potassium 4.3 mEq/L (3.5-5.1)
[2023-04-23 08:13] VITALS: O2SAT 97; BMI 30.7
[2023-04-23 10:00] VITALS: TEMP 97.8
--- NOTE | 2023-04-23 16:15 | EKG ---
Test Date: 2023-04-21 Test Time: 03:32:40 Poultry Hanger: UVALDO MEASUREMENT RESULTS: Intervals: Rate: 79 ND: 140 QRSD: 86 QT: 366 QTc: 419 [place]: P: 49 ND: 140 QRS: 32 T: 61 INTERPRETIVE STATEMENTS: Normal sinus rhythm Normal ECG Compared to ECG 07/26/2018 13:37:16 Myocardial infarct finding no longer present Electronically Signed On 04-23-23 16:07:16 [employer] by Toan Cohn
== END 2023-04-23 09:15 | disposition home or self-care (01) | DRG 281 ==
LOC: ER 03:05 → ERHOLD 06:39 → 4TH 07:56 → OBSVTOIN 17:50
PROVIDERS: ADMIT Hospitalist; ATTEND Hospitalist
PROC: 4A023N7 Measurement of Cardiac Sampling and Pressure, Left Heart, Percutaneous Approach (ICD-10-PCS; principal; 2023-04-21)
PROC: B2111ZZ Fluoroscopy of Multiple Coronary Arteries using Low Osmolar Contrast (ICD-10-PCS; 2023-04-21)
DX: I21.4 Non-ST elevation (NSTEMI) myocardial infarction (principal); N17.9 Acute kidney failure, unspecified; I16.0 Hypertensive urgency; E11.9 Type 2 diabetes mellitus without complications; I10 Essential (primary) hypertension; E03.8 Other specified hypothyroidism; S49.90XA Unspecified injury of shoulder and upper arm, unspecified arm, initial encounter; I25.2 Old myocardial infarction; I25.10 Atherosclerotic heart disease of native coronary artery without angina pectoris; Z88.1 Allergy status to other antibiotic agents; Z88.7 Allergy status to serum and vaccine; Z93.3 Colostomy status; Z86.16 Personal history of COVID-19; Z79.82 Long term (current) use of aspirin; Z79.899 Other long term (current) drug therapy
CPT/HCPCS: 36415; 71045; 71275; 76937; 78452; 80048; 80061; 80076; 81001; 82947; 83735; 83880; 84100; 84439; 84443; 84484; 85025; 85610; 86140; 87077; 87086; 87088; 87186; 87804; 87811; 93005; 93017; 93458; 96374; 96375; 99152; 99153; 99285; A9500; C1893; G0378; J0461; J1644; J2001; J2250; J2405; J2785; J3010; J7030; J7040; Q9967